=== PATIENT | female | born 1935 | race Caucasian/White ===

== ENCOUNTER → 2017-01-12 | Outpatient (CLI) | payer MEDICARE, OTHER ==
[~2017-01-12] MED LIST: ASPI-496 PO; ASPI-621 PO; ATOR40TA78 PO; ATOR80TA75 PO; CARV6.252 PO; CHOL2000 PO; CLOP75TA22 PO; DIAZ2TAB PO; DIAZ2TAB3 PO; ENAL5TAB PO; FERR325T20 PO; GABA100C8 PO; GABA300C10 PO; HYDR-2442 PO; HYDR10TA4 PO; LEVO100T5 PO; LEVO75TA PO; LEVO88TA4 PO; MULT-26 PO; MULT-658 PO; TICA90TA PO; TRAM50TA2 PO; UBID100C24 PO; VITA1CAP PO; VITA1TAB61 PO; co q 10 PO; vit d PO
== END | disposition home or self-care (01) ==
LOC: CVU 08:11
PROVIDERS: ATTEND Registered Nurse
DX: I65.23 Occlusion and stenosis of bilateral carotid arteries (principal); I25.2 Old myocardial infarction; I10 Essential (primary) hypertension; Z95.5 Presence of coronary angioplasty implant and graft
CPT/HCPCS: 93880

== ENCOUNTER 2017-07-24 11:26 | Day surgery (SDC) | payer MEDICARE, OTHER ==
[~2017-07-24] VITALS: Ht 147.3 cm; Wt 50.0 kg
[~2017-07-24 11:26] MED LIST changes: +ATOR-2 PO; -ATOR80TA75 PO; -CLOP75TA22 PO; +CLOP75TA52 PO; +FERR325T18 PO; -FERR325T20 PO; +GABA-826 PO; -GABA100C8 PO
[2017-07-24 12:15] VITALS: BP 167/80
[2017-07-24] MEDS ORDERED: VANCOMYCIN PMX 1GM/200ML 200 ML IVPB ONE (12:15)
[2017-07-24] MEDS ORDERED: SODIUM CHLORIDE 0.9% 1,000 ML IV SCH (12:20)
[2017-07-24] MEDS ORDERED: LIDOCAINE 2%, 20ML ONE ×2 (13:02)
[2017-07-24] MEDS ORDERED: FENTANYL PF 100 MCG/2ML ONE (13:16)
[2017-07-24] MEDS ORDERED: MIDAZOLAM 1 MG/ML, 5ML ONE (13:17)
[2017-07-24] MEDS ORDERED: FLUMAZENIL 0.1 MG/1 ML, 5ML ONE (13:17)
[2017-07-24] MEDS ORDERED: NALOXONE 1 MG/ML, 2ML ONE (13:17)
== END 2017-07-24 16:15 ==
LOC: OUT 11:26
PROVIDERS: ATTEND Internal Medicine Hematology & Oncology
DX: Z45.2 Encounter for adjustment and management of vascular access device (principal); C67.9 Malignant neoplasm of bladder, unspecified; Z88.1 Allergy status to other antibiotic agents; Z88.0 Allergy status to penicillin; I10 Essential (primary) hypertension; E78.5 Hyperlipidemia, unspecified; E03.9 Hypothyroidism, unspecified; Z98.890 Other specified postprocedural states; I25.10 Atherosclerotic heart disease of native coronary artery without angina pectoris; Z90.710 Acquired absence of both cervix and uterus; Z90.49 Acquired absence of other specified parts of digestive tract
CPT/HCPCS: 36561; 76937; 77001; 99156; 99157; C1788; C1894; J1642; J2250; J3010; J3370; J3490; J7030; J2310

== ENCOUNTER → 2017-08-28 | Outpatient (CLI) | payer MEDICARE, OTHER | END | disposition home or self-care (01) | LOC: RAD 10:47 | PROVIDERS: ATTEND Internal Medicine Cardiovascular Disease | DX: I65.23 Occlusion and stenosis of bilateral carotid arteries (principal); G45.9 Transient cerebral ischemic attack, unspecified | CPT/HCPCS: 93880 ==

== ENCOUNTER 2018-02-28 07:30 | Inpatient (IN) | payer MEDICARE, OTHER ==
[~2018-02-28] VITALS: Ht 147.3 cm; Wt 69.2 kg
[2018-03-13] MEDS ORDERED: GINK60TA PO (09:48)
[2018-03-13] MEDS ORDERED: IRON18TA PO (09:48)
[2018-03-13] MEDS ORDERED: TURM500C4 PO (09:48)
[2018-03-13] MEDS ORDERED: MAGN250T9 PO (09:48)
[2018-03-13] MEDS ORDERED: ATOR40TA78 PO (09:48)
[2018-03-13] MEDS ORDERED: LEVO88TA4 PO (09:48)
[2018-03-13] MEDS ORDERED: UBID100C24 PO (09:48)
[2018-03-20] MEDS ORDERED: LACTATED RINGERS 1,000 ML IV SCH ×2 (06:03→20:00)
[2018-03-20 06:04] VITALS: BP 148/63
[2018-03-20] MEDS ORDERED: THROMBIN 5,000 UNIT VIAL TP ONE (07:04)
[2018-03-20] MEDS ORDERED: BUPIVACAINE/PF-EPI 0.25% 1:200K ONE (07:04)
[2018-03-20] MEDS ORDERED: FENTANYL PF 250 MCG/5ML ONE ×2 (07:11→13:37)
[2018-03-20] MEDS ORDERED: MIDAZOLAM 1 MG/ML, 2ML ONE (07:11)
[2018-03-20] MEDS ORDERED: MEPERIDINE/PF 25MG/0.5ML IVPush PRN (08:30)
[2018-03-20] MEDS ORDERED: DIAZEPAM 5 MG/ML, 2ML IVPush PRN (08:30)
[2018-03-20] MEDS ORDERED: ACETAMINOPHEN 325 MG TABLET PO PRN (08:30)
[2018-03-20] MEDS ORDERED: ONDANSETRON 2MG/ML, 2ML IV PRN (08:30)
[2018-03-20] MEDS ORDERED: FENTANYL PF 100 MCG/2ML IV PRN (08:30)
[2018-03-20] MEDS ORDERED: HYDROmorphone 2 MG/ML, 1ML IV PRN (08:30)
[2018-03-20] MEDS ORDERED: OXYcodone 5 MG/5 ML ORAL.SOL UDC PO PRN (08:30)
[2018-03-20] MEDS ORDERED: CEFOTETAN 2 GM ONE (10:20)
[2018-03-20] MEDS ORDERED: HEPARIN 1,000 UNITS/ML, 10ML ONE (12:54)
[2018-03-20] MEDS ORDERED: HEPARIN 1,000 UNITS/ML, 10ML IV ONE (13:16)
[2018-03-20] MEDS ORDERED: ESTROGENS CONJUGATED VAG CRM 0.625MG/1G, 30GM ONE (13:26)
[2018-03-20] MEDS ORDERED: PROPOFOL 10 MG/ML, 20ML ONE (13:37)
[2018-03-20] MEDS ORDERED: ROCURONIUM 10MG/ML,5ML ONE (13:37)
[2018-03-20] MEDS ORDERED: ONDANSETRON 2MG/ML, 2ML ONE ×2 (13:37)
[2018-03-20] MEDS ORDERED: CEFOTETAN PMX 2GM/50ML 50 ML ONE (13:37)
[2018-03-20] MEDS ORDERED: DEXAMETHASONE 4 MG/ML, 1ML ONE (13:37)
[2018-03-20] MEDS ORDERED: LIDOCAINE-MPF 2% ,5ML ONE (13:38)
[2018-03-20] MEDS ORDERED: PHENYLEPHRINE 10 MG/ML ONE (14:31)
[2018-03-20] MEDS ORDERED: SUGAMMADEX 200 MG/2 ML IVPush ONE (16:08)
[2018-03-20] MEDS: LABETALOL 5MG/ML, 20ML IV PRN ×3 (17:00→17:20)
[2018-03-20] MEDS ORDERED: LABETALOL 5MG/ML, 20ML ONE (17:01)
[2018-03-20] MEDS ORDERED: MORPHINE SULFATE 4 MG/ML, 1ML ONE (17:14)
[2018-03-20] MEDS ORDERED: MEPERIDINE/PF 50 MG/ML ONE (17:18)
[2018-03-20] MEDS ORDERED: hydrALAzine 20 MG/ML, 1ML ONE (17:32)
[2018-03-20] MEDS ORDERED: hydrALAzine 20 MG/ML, 1ML IV PRN (18:00)
[2018-03-20 19:10] VITALS: BP 132/71
[2018-03-20] MEDS ORDERED: CEFOXITIN PMX 1GM/50ML 50 ML IVPB SCH (20:00)
[2018-03-20 20:16] VITALS: BP 165/74
[2018-03-20] MEDS: morphine SULFATE 10 MG/ML, 1ML IV PRN (21:00)
[2018-03-20] MEDS ORDERED: ENALAPRIL 5MG TABLET PO SCH (21:00)
[2018-03-20] MEDS: ONDANSETRON 2MG/ML, 2ML IV PRN (21:10)
[2018-03-20 21:50] VITALS: BP 147/77
[2018-03-20] MEDS: GABAPENTIN 300 MG CAPSULE PO SCH (21:54)
[2018-03-20] MEDS: CEFOXITIN 1,000 MG in SODIUM CHLORIDE 0.9% 50 ML IVPB SCH (21:54)
[2018-03-20] MEDS ORDERED: ENALAPRILAT 1.25 MG/ML, 2ML IV PRN (22:30)
[2018-03-20] MEDS ORDERED: LABETALOL 5MG/ML, 20ML IVPush PRN (22:30)
[2018-03-21] VITALS (7 sets, daily range): BP systolic 96–153; BP diastolic 46–71
[2018-03-21] MEDS: morphine SULFATE 10 MG/ML, 1ML IV PRN (00:21)
[2018-03-21] MEDS: ENALAPRILAT 1.25 MG/ML, 2ML IV SCH ×2 (00:22→07:03)
[2018-03-21] MEDS: HYDROcodone/APAP 5/325 TABLET PO PRN ×4 (01:48→17:18)
[2018-03-21] MEDS: ONDANSETRON 2MG/ML, 2ML IV PRN ×2 (06:14→13:33)
[2018-03-21] MEDS: LEVOTHYROXINE 88 MCG TABLET PO SCH (06:17)
[2018-03-21] MEDS: CEFOXITIN 1,000 MG in SODIUM CHLORIDE 0.9% 50 ML IVPB SCH ×3 (06:17→22:08)
[2018-03-21] MEDS: CARVEDILOL 6.25 MG TABLET PO SCH ×2 (06:17→17:13)
[2018-03-21 07:41] LABS: ANION GAP 11 mmol/L (5-15); CALCIUM 7.8 mg/dL (8.5-10.1); CHLORIDE 109 mmol/L (98-107); CREATININE 1.96 mg/dL (0.55-1.02)
[2018-03-21 07:53] LABS: BASOPHILS # (AUTO) 0.02 x10^3/uL (0-0.1); BASOPHILS % (AUTO) 0 % (0-1); EOSINOPHILS % (AUTO) 0 % (1-7); LYMPHOCYTES # (AUTO) 1.28 x10^3/uL (1-3.4); LYMPHOCYTES % (AUTO) 10 % (22-44); MD NO; MEAN CORPUSCULAR HGB CONC 33.1 g/dL (32.4-35.8); MEAN CORPUSCULAR VOLUME 96.8 fL (80-100); MONOCYTES % (AUTO) 6 % (2-9); NEUTROPHILS # (AUTO) 11.25 x10^3/uL (1.8-6.8); NEUTROPHILS % (AUTO) 84 % (42-75); PLATELET COUNT 176 x10^3/uL (130-400); RED BLOOD COUNT 2.94 x10^6/uL (3.82-5.3); RED CELL DISTRIBUTION WIDTH 14.1 % (9.6-15.2)
[2018-03-21] MEDS: GABAPENTIN 300 MG CAPSULE PO SCH ×3 (08:12→22:07)
[2018-03-21] MEDS: HEPARIN 5,000 UNITS/ML, 1ML SQ SCH ×3 (08:13→22:08)
[2018-03-21] MEDS ORDERED: ENALAPRILAT 1.25 MG/ML, 2ML IV PRN (09:30)
[2018-03-21] MEDS: LACTATED RINGERS 1,000 ML IV SCH (13:34)
[2018-03-21] MEDS ORDERED: SODIUM CHLORIDE 0.9%, 500ML IVBOLUS ONE (18:30)
[2018-03-22] MEDS: LACTATED RINGERS 1,000 ML IV SCH ×3 (01:39→22:12)
[2018-03-22 05:13] VITALS: BP 120/54
[2018-03-22] MEDS: CEFOXITIN 1,000 MG in SODIUM CHLORIDE 0.9% 50 ML IVPB SCH ×2 (06:19→14:04)
[2018-03-22] MEDS: CARVEDILOL 6.25 MG TABLET PO SCH ×2 (06:20→17:36)
[2018-03-22] MEDS: HEPARIN 5,000 UNITS/ML, 1ML SQ SCH ×3 (06:20→23:27)
[2018-03-22] MEDS: LEVOTHYROXINE 88 MCG TABLET PO SCH (06:20)
[2018-03-22] MEDS: HYDROcodone/APAP 5/325 TABLET PO PRN (06:37)
[2018-03-22 07:50] VITALS: BP 101/59
[2018-03-22] MEDS: GABAPENTIN 300 MG CAPSULE PO SCH ×3 (07:57→20:06)
[2018-03-22 09:11] LABS: BASOPHILS # (AUTO) 0.04 x10^3/uL (0-0.1); BASOPHILS % (AUTO) 0 % (0-1); EOSINOPHILS # (AUTO) 0.18 x10^3/uL (0-0.4); EOSINOPHILS % (AUTO) 1 % (1-7); LYMPHOCYTES # (AUTO) 1.83 x10^3/uL (1-3.4); LYMPHOCYTES % (AUTO) 13 % (22-44); MD NO; MEAN CORPUSCULAR HEMOGLOBIN 31.8 pg (27.0-34.8); MEAN CORPUSCULAR HGB CONC 32.7 g/dL (32.4-35.8); MEAN CORPUSCULAR VOLUME 97.1 fL (80-100); MEAN PLATELET VOLUME 8.1 fL (7.4-10.4); MONOCYTES # (AUTO) 1.11 x10^3/uL (0.2-0.8); MONOCYTES % (AUTO) 8 % (2-9); NEUTROPHILS # (AUTO) 11.46 x10^3/uL (1.8-6.8); NEUTROPHILS % (AUTO) 78 % (42-75); PLATELET COUNT 155 x10^3/uL (130-400); RED BLOOD COUNT 2.75 x10^6/uL (3.82-5.3); RED CELL DISTRIBUTION WIDTH 14.4 % (9.6-15.2)
[2018-03-22 09:15] LABS: ANION GAP 5 mmol/L (5-15); CALCIUM 7.2 mg/dL (8.5-10.1); CHLORIDE 108 mmol/L (98-107); CREATININE 1.96 mg/dL (0.55-1.02)
[2018-03-22 14:22] VITALS: BP 129/60
[2018-03-22] MEDS: ACETAMINOPHEN 500 MG TABLET PO PRN ×2 (16:12→23:28)
[2018-03-22 19:04] VITALS: BP 115/49
[2018-03-23 01:46] VITALS: BP 94/48
[2018-03-23 05:13] LABS: MEAN CORPUSCULAR HEMOGLOBIN 31.1 pg (27.0-34.8); MEAN CORPUSCULAR HGB CONC 32.1 g/dL (32.4-35.8); MEAN CORPUSCULAR VOLUME 96.9 fL (80-100); MEAN PLATELET VOLUME 8.2 fL (7.4-10.4); PLATELET COUNT 136 x10^3/uL (130-400); RED BLOOD COUNT 2.51 x10^6/uL (3.82-5.3); RED CELL DISTRIBUTION WIDTH 14.2 % (9.6-15.2)
[2018-03-23 05:22] LABS: ANION GAP 9 mmol/L (5-15); CALCIUM 7.3 mg/dL (8.5-10.1); CHLORIDE 109 mmol/L (98-107); CREATININE 1.91 mg/dL (0.55-1.02)
[2018-03-23 05:56] LABS: BASOPHILS # (AUTO) 0.02 x10^3/uL (0-0.1); BASOPHILS % (AUTO) 0 % (0-1); EOSINOPHILS # (AUTO) 0.31 x10^3/uL (0-0.4); EOSINOPHILS % (AUTO) 3 % (1-7); LYMPHOCYTES # (AUTO) 1.62 x10^3/uL (1-3.4); LYMPHOCYTES % (AUTO) 13 % (22-44); MD SCAN; MONOCYTES # (AUTO) 1.08 x10^3/uL (0.2-0.8); MONOCYTES % (AUTO) 9 % (2-9); NEUTROPHILS # (AUTO) 9.51 x10^3/uL (1.8-6.8); NEUTROPHILS % (AUTO) 76 % (42-75)
[2018-03-23 07:17] VITALS: BP 107/49
[2018-03-23] MEDS: ACETAMINOPHEN 500 MG TABLET PO PRN (07:36)
[2018-03-23] MEDS: HEPARIN 5,000 UNITS/ML, 1ML SQ SCH ×3 (07:37→22:09)
[2018-03-23] MEDS: LEVOTHYROXINE 88 MCG TABLET PO SCH (07:37)
[2018-03-23] MEDS: CARVEDILOL 6.25 MG TABLET PO SCH ×3 (07:37→18:14)
[2018-03-23] MEDS: LACTATED RINGERS 1,000 ML IV SCH ×2 (07:42→17:48)
[2018-03-23] MEDS: GABAPENTIN 300 MG CAPSULE PO SCH ×3 (09:20→20:57)
[2018-03-23 10:51] LABS: MEAN CORPUSCULAR HGB CONC 33.8 g/dL (32.4-35.8); MEAN CORPUSCULAR VOLUME 97.9 fL (80-100); MEAN PLATELET VOLUME 8.2 fL (7.4-10.4); PLATELET COUNT 134 x10^3/uL (130-400); RED BLOOD COUNT 2.56 x10^6/uL (3.82-5.3); RED CELL DISTRIBUTION WIDTH 14.2 % (9.6-15.2)
[2018-03-23 10:55] LABS: ANION GAP 9 mmol/L (5-15); CALCIUM 7.5 mg/dL (8.5-10.1); CHLORIDE 109 mmol/L (98-107); CREATININE 1.81 mg/dL (0.55-1.02)
[2018-03-23] MEDS: METOCLOPRAMIDE 5 MG/ML, 2ML IVPush SCH ×2 (11:01→18:15)
[2018-03-23 11:14] LABS: MD YES
[2018-03-23 11:16] LABS: BAND#(MANUAL) 0.91 x10^3/uL; BANDS%(MANUAL) 7 % (0-7); EOS#(MANUAL) 0.52 x10^3/uL (0.0-0.4); EOS% (MANUAL) 4 % (1-7); LYMPHS% (MANUAL) 10 % (22-44); METAMYELOCYTES# (MANUAL) 0.13 x10^3/uL (0-0); METAMYELOCYTES% (MANUAL) 1 % (0-1); MONOS#(MANUAL) 0.65 x10^3/uL (0.3-2.7); MONOS% (MANUAL) 5 % (2-9); SEG#(MANUAL) 9.49 x10^3/uL (1.8-6.8); SEGS% (MANUAL) 73 % (42-75)
[2018-03-23 11:18] LABS: <PLATELET ESTIMATE> ADEQUATE; <RBC MORPHOLOGY> NORMAL
[2018-03-23 11:19] LABS: <PLT MORPHOLOGY> NORMAL PLT MORPH
[2018-03-23 14:42] VITALS: BP 124/47
[2018-03-23 17:46] VITALS: BP 143/72
[2018-03-23 18:07] VITALS: BP 151/68
[2018-03-23] MEDS: SODIUM CHLORIDE 0.9% 1,000 ML IV SCH (19:18)
[2018-03-23] MEDS ORDERED: ACETAMINOPHEN 650 MG SUPP ONE (19:33)
[2018-03-23 19:45] LABS: MICROSCOPIC INDICATED
[2018-03-23 19:46] LABS: CULTURE INDICATED? YES
[2018-03-23] MEDS ORDERED: ACETAMINOPHEN 650 MG SUPP PR PRN (20:00)
[2018-03-23 20:09] VITALS: BP 151/70
[2018-03-23] MEDS ORDERED: NITR100C56 PO (23:44)
[2018-03-23] MEDS ORDERED: HYDR-3240 PO (23:45)
[2018-03-23] MEDS ORDERED: DOCU-131 PO (23:46)
[2018-03-24] VITALS (7 sets, daily range): BP systolic 96–156; BP diastolic 43–82
[2018-03-24] MEDS: LACTATED RINGERS 1,000 ML IV SCH ×3 (02:23→18:07)
[2018-03-24] MEDS: METOCLOPRAMIDE 5 MG/ML, 2ML IVPush SCH ×3 (02:26→18:07)
[2018-03-24] MEDS: HYDROcodone/APAP 5/325 TABLET PO PRN (04:22)
[2018-03-24] MEDS: SODIUM CHLORIDE 0.9% 1,000 ML IV SCH ×2 (05:15→14:25)
[2018-03-24 05:36] LABS: MEAN CORPUSCULAR HEMOGLOBIN 32.6 pg (27.0-34.8); MEAN CORPUSCULAR HGB CONC 33.6 g/dL (32.4-35.8); MEAN CORPUSCULAR VOLUME 97.2 fL (80-100); MEAN PLATELET VOLUME 8.2 fL (7.4-10.4); PLATELET COUNT 160 x10^3/uL (130-400); RED CELL DISTRIBUTION WIDTH 14.1 % (9.6-15.2)
[2018-03-24 05:47] LABS: ANION GAP 9 mmol/L (5-15); CALCIUM 7.3 mg/dL (8.5-10.1); CHLORIDE 111 mmol/L (98-107)
[2018-03-24 05:50] LABS: CREATININE 1.15 mg/dL (0.55-1.02)
[2018-03-24] MEDS: LEVOTHYROXINE 88 MCG TABLET PO SCH (06:06)
[2018-03-24] MEDS: HEPARIN 5,000 UNITS/ML, 1ML SQ SCH ×3 (06:06→21:44)
[2018-03-24] MEDS: CARVEDILOL 6.25 MG TABLET PO SCH ×2 (06:06→18:07)
[2018-03-24 06:19] LABS: MD YES
[2018-03-24 06:20] LABS: BAND#(MANUAL) 0.35 x10^3/uL; BANDS%(MANUAL) 3 % (0-7); BASOS#(MANUAL) 0.12 x10^3/uL (0-0.1); BASOS% (MANUAL) 1 % (0-1); EOS#(MANUAL) 0.12 x10^3/uL (0.0-0.4); EOS% (MANUAL) 1 % (1-7); LYMPH#(MANUAL) 0.23 x10^3/uL (1-3.4); LYMPHS% (MANUAL) 2 % (22-44); MONOS#(MANUAL) 1.04 x10^3/uL (0.3-2.7); MONOS% (MANUAL) 9 % (2-9); SEG#(MANUAL) 9.74 x10^3/uL (1.8-6.8); SEGS% (MANUAL) 84 % (42-75)
[2018-03-24 06:22] LABS: <PLATELET ESTIMATE> ADEQUATE; <PLT MORPHOLOGY> NORMAL PLT MORPH; <RBC MORPHOLOGY> NORMAL
[2018-03-24] MEDS: GABAPENTIN 300 MG CAPSULE PO SCH ×3 (08:50→21:44)
[2018-03-24] MEDS: ACETAMINOPHEN 500 MG TABLET PO PRN ×2 (08:50→16:02)
[2018-03-25] MEDS: SODIUM CHLORIDE 0.9% 1,000 ML IV SCH ×3 (00:40→21:25)
[2018-03-25 02:00] VITALS: BP 157/67
[2018-03-25] MEDS: ACETAMINOPHEN 500 MG TABLET PO PRN (02:32)
[2018-03-25] MEDS: METOCLOPRAMIDE 5 MG/ML, 2ML IVPush SCH ×3 (02:39→17:49)
[2018-03-25] MEDS: LEVOTHYROXINE 88 MCG TABLET PO SCH (05:12)
[2018-03-25] MEDS: HEPARIN 5,000 UNITS/ML, 1ML SQ SCH ×3 (05:12→21:17)
[2018-03-25] MEDS: CARVEDILOL 6.25 MG TABLET PO SCH ×2 (05:13→17:47)
[2018-03-25] MEDS: LACTATED RINGERS 1,000 ML IV SCH ×2 (05:54→20:00)
[2018-03-25 06:24] LABS: ANION GAP 6 mmol/L (5-15); CALCIUM 6.6 mg/dL (8.5-10.1); CHLORIDE 114 mmol/L (98-107); MEAN CORPUSCULAR HEMOGLOBIN 32.4 pg (27.0-34.8); MEAN CORPUSCULAR HGB CONC 33.4 g/dL (32.4-35.8); MEAN CORPUSCULAR VOLUME 97.1 fL (80-100); MEAN PLATELET VOLUME 8.2 fL (7.4-10.4); PLATELET COUNT 142 x10^3/uL (130-400); RED BLOOD COUNT 2.38 x10^6/uL (3.82-5.3)
[2018-03-25 07:09] VITALS: BP 133/63
[2018-03-25 07:11] LABS: MD YES
[2018-03-25 07:12] LABS: BAND#(MANUAL) 0.16 x10^3/uL; BANDS%(MANUAL) 2 % (0-7); BASOS#(MANUAL) 0.08 x10^3/uL (0-0.1); BASOS% (MANUAL) 1 % (0-1); LYMPH#(MANUAL) 0.66 x10^3/uL (1-3.4); LYMPHS% (MANUAL) 8 % (22-44); MONOS#(MANUAL) 0.16 x10^3/uL (0.3-2.7); MONOS% (MANUAL) 2 % (2-9); MYELOCYTES# (MANUAL) 0.08 x10^3/uL (0-0); MYELOCYTES% (MANUAL) 1 % (0-0); SEG#(MANUAL) 7.05 x10^3/uL (1.8-6.8); SEGS% (MANUAL) 86 % (42-75)
[2018-03-25 07:13] LABS: <PLATELET ESTIMATE> ADEQUATE; <PLT MORPHOLOGY> NORMAL PLT MORPH; <RBC MORPHOLOGY> NORMAL
[2018-03-25 07:15] LABS: TOXIC GRAN 1+
[2018-03-25] MEDS: GABAPENTIN 300 MG CAPSULE PO SCH ×3 (11:40→21:17)
[2018-03-25] MEDS: HYDROcodone/APAP 5/325 TABLET PO PRN (14:41)
[2018-03-25 17:49] VITALS: BP 152/72
[2018-03-25 20:15] VITALS: BP 141/63
[2018-03-26 01:22] VITALS: BP 159/66
[2018-03-26] MEDS: METOCLOPRAMIDE 5 MG/ML, 2ML IVPush SCH ×3 (03:14→17:08)
[2018-03-26] MEDS: HYDROcodone/APAP 5/325 TABLET PO PRN ×4 (03:46→22:41)
[2018-03-26 04:22] LABS: ALANINE AMINOTRANSFERASE 90 U/L (12-78); ALBUMIN 1.3 g/dL (3.4-5.0); ANION GAP 6 mmol/L (5-15); CALCIUM 6.8 mg/dL (8.5-10.1); CHLORIDE 115 mmol/L (98-107); CREATININE 0.76 mg/dL (0.55-1.02)
[2018-03-26 04:23] LABS: BASOPHILS # (AUTO) 0.01 x10^3/uL (0-0.1); BASOPHILS % (AUTO) 0 % (0-1); EOSINOPHILS # (AUTO) 0.39 x10^3/uL (0-0.4); EOSINOPHILS % (AUTO) 4 % (1-7); LYMPHOCYTES % (AUTO) 16 % (22-44); MD NO; MEAN CORPUSCULAR HEMOGLOBIN 31.6 pg (27.0-34.8); MEAN CORPUSCULAR HGB CONC 33.4 g/dL (32.4-35.8); MEAN CORPUSCULAR VOLUME 94.7 fL (80-100); MEAN PLATELET VOLUME 8.1 fL (7.4-10.4); MONOCYTES # (AUTO) 1.21 x10^3/uL (0.2-0.8); MONOCYTES % (AUTO) 13 % (2-9); NEUTROPHILS # (AUTO) 6.55 x10^3/uL (1.8-6.8); NEUTROPHILS % (AUTO) 68 % (42-75); PLATELET COUNT 162 x10^3/uL (130-400); RED CELL DISTRIBUTION WIDTH 14.2 % (9.6-15.2)
[2018-03-26 04:25] LABS: ALKALINE PHOSPHATASE 180 U/L (45-117); BILIRUBIN,TOTAL 0.5 mg/dL (0.2-1.0); TOTAL PROTEIN 4.6 g/dL (6.4-8.2)
[2018-03-26] MEDS: LACTATED RINGERS 1,000 ML IV SCH ×2 (05:06→14:28)
[2018-03-26] MEDS: CARVEDILOL 6.25 MG TABLET PO SCH ×2 (05:51→17:08)
[2018-03-26] MEDS: LEVOTHYROXINE 88 MCG TABLET PO SCH (05:51)
[2018-03-26] MEDS: HEPARIN 5,000 UNITS/ML, 1ML SQ SCH ×3 (05:52→22:35)
[2018-03-26 07:16] VITALS: BP 127/62
[2018-03-26] MEDS: GABAPENTIN 300 MG CAPSULE PO SCH ×3 (08:06→22:34)
[2018-03-26] MEDS: SODIUM CHLORIDE 0.9% 1,000 ML IV SCH ×2 (08:07→14:42)
[2018-03-26] MEDS: FLUCONAZOLE 200 MG/100 ML 100 ML IV SCH (10:26)
[2018-03-26 12:04] VITALS: BP 155/70
[2018-03-26 20:00] VITALS: BP 120/56
[2018-03-27 02:33] VITALS: BP 130/66
[2018-03-27] MEDS: METOCLOPRAMIDE 5 MG/ML, 2ML IVPush SCH ×2 (02:40→10:17)
[2018-03-27] MEDS: SODIUM CHLORIDE 0.9% 1,000 ML IV SCH ×2 (02:40→12:27)
[2018-03-27 04:47] LABS: BASOPHILS # (AUTO) 0.02 x10^3/uL (0-0.1); BASOPHILS % (AUTO) 0 % (0-1); EOSINOPHILS # (AUTO) 0.45 x10^3/uL (0-0.4); EOSINOPHILS % (AUTO) 5 % (1-7); LYMPHOCYTES # (AUTO) 1.14 x10^3/uL (1-3.4); LYMPHOCYTES % (AUTO) 12 % (22-44); MD NO; MEAN CORPUSCULAR HEMOGLOBIN 31.8 pg (27.0-34.8); MEAN CORPUSCULAR HGB CONC 32.6 g/dL (32.4-35.8); MEAN CORPUSCULAR VOLUME 97.5 fL (80-100); MEAN PLATELET VOLUME 8.3 fL (7.4-10.4); MONOCYTES # (AUTO) 1.15 x10^3/uL (0.2-0.8); MONOCYTES % (AUTO) 12 % (2-9); NEUTROPHILS # (AUTO) 7.18 x10^3/uL (1.8-6.8); NEUTROPHILS % (AUTO) 72 % (42-75); PLATELET COUNT 152 x10^3/uL (130-400); RED BLOOD COUNT 2.36 x10^6/uL (3.82-5.3); RED CELL DISTRIBUTION WIDTH 14.8 % (9.6-15.2)
[2018-03-27 04:58] LABS: ANION GAP 8 mmol/L (5-15); CALCIUM 6.7 mg/dL (8.5-10.1); CHLORIDE 116 mmol/L (98-107)
[2018-03-27] MEDS: HEPARIN 5,000 UNITS/ML, 1ML SQ SCH ×2 (06:16→14:00)
[2018-03-27] MEDS: LEVOTHYROXINE 88 MCG TABLET PO SCH (06:16)
[2018-03-27] MEDS: CARVEDILOL 6.25 MG TABLET PO SCH (06:17)
[2018-03-27 06:49] VITALS: BP 145/64
[2018-03-27] MEDS: FLUCONAZOLE 200 MG/100 ML 100 ML IV SCH (08:21)
[2018-03-27] MEDS: GABAPENTIN 300 MG CAPSULE PO SCH (08:21)
[2018-03-27 13:47] VITALS: BP 182/71
[2018-03-27] MEDS: HYDROcodone/APAP 5/325 TABLET PO PRN (13:54)
[2018-03-27] MEDS ORDERED: ENOX40SY4 SQ (14:12)
[2018-03-27] MEDS ORDERED: NITR100C56 PO (14:14)
[2018-03-27 14:35] VITALS: BP 151/69
== END 2018-03-27 14:55 | DRG 653 ==
LOC: ORIP 03-20 05:32 → EDSTATUS 03-20 07:30 → 5SO 03-20 18:39 → 4NOR 03-21 13:18
PROVIDERS: ADMIT Urology; ATTEND Internal Medicine
PROC: 0UT20ZZ Resection of Bilateral Ovaries, Open Approach (ICD-10-PCS; 2018-03-20)
PROC: 0T180ZC Bypass Bilateral Ureters to Ileocutaneous, Open Approach (ICD-10-PCS; 2018-03-20)
PROC: 8E0W0CZ Robotic Assisted Procedure of Trunk Region, Open Approach (ICD-10-PCS; 2018-03-20)
PROC: 07TC0ZZ Resection of Pelvis Lymphatic, Open Approach (ICD-10-PCS; 2018-03-20)
PROC: 0TTB0ZZ Resection of Bladder, Open Approach (ICD-10-PCS; principal; 2018-03-20 07:30)
PROC: 0T9B70Z Drainage of Bladder with Drainage Device, Via Natural or Artificial Opening (ICD-10-PCS; 2018-03-23)
DX: C67.9 Malignant neoplasm of bladder, unspecified (principal); J96.90 Respiratory failure, unspecified, unspecified whether with hypoxia or hypercapnia; N17.9 Acute kidney failure, unspecified; B37.49 Other urogenital candidiasis; E78.5 Hyperlipidemia, unspecified; E03.9 Hypothyroidism, unspecified; I10 Essential (primary) hypertension; D64.9 Anemia, unspecified; I25.10 Atherosclerotic heart disease of native coronary artery without angina pectoris; I25.2 Old myocardial infarction; I73.9 Peripheral vascular disease, unspecified; M54.5 Low back pain; K64.8 Other hemorrhoids; G89.29 Other chronic pain; Z90.710 Acquired absence of both cervix and uterus; Z90.49 Acquired absence of other specified parts of digestive tract; Z95.5 Presence of coronary angioplasty implant and graft; Z92.21 Personal history of antineoplastic chemotherapy; Z82.49 Family history of ischemic heart disease and other diseases of the circulatory system; Z88.0 Allergy status to penicillin; Z88.2 Allergy status to sulfonamides; Z79.82 Long term (current) use of aspirin; Z79.899 Other long term (current) drug therapy
CPT/HCPCS: 36415; 70450; 71045; 71250; 78582; 80048; 80053; 81001; 82570; 82962; 83605; 83735; 84100; 85014; 85018; 85025; 85379; 86850; 86900; 87040; 87086; 87106; 88305; 88309; 88331; C1729; J1100; J1644; J2175; J2250; J2405; J2704; J3010; J3490; A9540; A9558; C1769; C2617; C9898; J0360; J0694; J1450; J2270; J2370; J2765; J7030; J7040; J7120; S0074

== ENCOUNTER → 2018-03-13 | Outpatient (CLI) | payer MEDICARE, OTHER ==
[~2018-03-13] MED LIST changes: +GINK60TA PO; +IRON18TA PO; +MAGN250T9 PO; +TURM500C4 PO
[2018-03-13 09:21] LABS: BASOPHILS # (AUTO) 0.06 x10^3/uL (0-0.1); BASOPHILS % (AUTO) 1 % (0-1); EOSINOPHILS # (AUTO) 0.37 x10^3/uL (0-0.4); EOSINOPHILS % (AUTO) 5 % (1-7); LYMPHOCYTES # (AUTO) 1.94 x10^3/uL (1-3.4); LYMPHOCYTES % (AUTO) 28 % (22-44); MD NO; MEAN CORPUSCULAR HEMOGLOBIN 31.8 pg (27.0-34.8); MEAN CORPUSCULAR VOLUME 96.5 fL (80-100); MEAN PLATELET VOLUME 7.9 fL (7.4-10.4); MONOCYTES # (AUTO) 0.79 x10^3/uL (0.2-0.8); MONOCYTES % (AUTO) 11 % (2-9); NEUTROPHILS # (AUTO) 3.83 x10^3/uL (1.8-6.8); NEUTROPHILS % (AUTO) 55 % (42-75); PLATELET COUNT 197 x10^3/uL (130-400); RED BLOOD COUNT 3.58 x10^6/uL (3.82-5.3); RED CELL DISTRIBUTION WIDTH 14.4 % (9.6-15.2)
[2018-03-13 09:34] LABS: ALANINE AMINOTRANSFERASE 32 U/L (12-78); ALBUMIN 3.4 g/dL (3.4-5.0); ANION GAP 7 mmol/L (5-15); CALCIUM 9.6 mg/dL (8.5-10.1); CHLORIDE 109 mmol/L (98-107); CREATININE 0.98 mg/dL (0.55-1.02)
[2018-03-13 09:36] LABS: ALKALINE PHOSPHATASE 77 U/L (45-117); BILIRUBIN,TOTAL 0.4 mg/dL (0.2-1.0); TOTAL PROTEIN 7.4 g/dL (6.4-8.2)
[2018-03-13 09:38] LABS: MICROSCOPIC NOT IND
== END | disposition home or self-care (01) ==
LOC: STAR 08:14
PROVIDERS: ATTEND Urology
DX: Z01.818 Encounter for other preprocedural examination (principal); C67.9 Malignant neoplasm of bladder, unspecified; I10 Essential (primary) hypertension; E78.5 Hyperlipidemia, unspecified
CPT/HCPCS: 36415; 80053; 81003; 85025; 87086; 93005

== ENCOUNTER 2018-05-14 12:43 | Inpatient (IN) | payer MEDICARE, OTHER ==
[~2018-05-14] VITALS: Ht 149.9 cm; Wt 60.2 kg
[~2018-05-14 12:43] MED LIST changes: +DOCU-131 PO; +ENOX40SY4 SQ; +HYDR-3240 PO; +NITR100C56 PO
[2018-05-14] MEDS ORDERED: SODIUM CHLORIDE FLUSH 10ML SYR IVF ONE (13:30)
[2018-05-14 13:59] LABS: MEAN CORPUSCULAR HEMOGLOBIN 30.9 pg (27.0-34.8); MEAN CORPUSCULAR HGB CONC 32.9 g/dL (32.4-35.8); MEAN PLATELET VOLUME 8.1 fL (7.4-10.4); PLATELET COUNT 289 x10^3/uL (130-400); RED BLOOD COUNT 2.99 x10^6/uL (3.82-5.3)
[2018-05-14 14:02] LABS: ALANINE AMINOTRANSFERASE 15 U/L (12-78); ANION GAP 10 mmol/L (5-15); CHLORIDE 106 mmol/L (98-107); CREATININE 1.72 mg/dL (0.55-1.02)
[2018-05-14 14:06] LABS: ALKALINE PHOSPHATASE 110 U/L (45-117); BILIRUBIN,TOTAL 0.3 mg/dL (0.2-1.0); TOTAL PROTEIN 7.3 g/dL (6.4-8.2); TROPONIN I < 0.015 ng/mL (0.000-0.045)
[2018-05-14 14:19] LABS: MD YES
[2018-05-14 14:24] LABS: BAND#(MANUAL) 0.24 x10^3/uL; BANDS%(MANUAL) 1 % (0-7)
[2018-05-14 14:25] LABS: LYMPH#(MANUAL) 1.71 x10^3/uL (1-3.4); LYMPHS% (MANUAL) 7 % (22-44); MONOS#(MANUAL) 1.46 x10^3/uL (0.3-2.7); MONOS% (MANUAL) 6 % (2-9); SEG#(MANUAL) 20.98 x10^3/uL (1.8-6.8); SEGS% (MANUAL) 86 % (42-75)
[2018-05-14 14:29] LABS: TOXIC GRAN 1+
[2018-05-14 14:30] LABS: <PLATELET ESTIMATE> ADEQUATE; <PLT MORPHOLOGY> NORMAL PLT MORPH; ANISOCYTOSIS 1+; OVALOCYTES 1+
[2018-05-14] MEDS ORDERED: LORA10TA62 PO (15:58)
[2018-05-14] MEDS ORDERED: METR500T PO (15:58)
[2018-05-14] MEDS ORDERED: FURO-93 PO (15:58)
[2018-05-14] MEDS ORDERED: FLUC150T2 PO (15:58)
[2018-05-14] MEDS ORDERED: FENTANYL PF 100 MCG/2ML ONE (16:26)
[2018-05-14] MEDS ORDERED: FENTANYL PF 100 MCG/2ML IV ONE (16:30)
[2018-05-14 17:50] LABS: CULTURE INDICATED? YES; MICROSCOPIC INDICATED
[2018-05-14] MEDS ORDERED: MORPHINE SULFATE 4 MG/ML, 1ML IVPush ONE (19:00)
[2018-05-14] MEDS ORDERED: CEFTRIAXONE 1,000 MG in SODIUM CHLORIDE 0.9% 50 ML IVPB ONE (19:00)
[2018-05-14] MEDS ORDERED: MORPHINE SULFATE 4 MG/ML, 1ML ONE (19:18)
[2018-05-14 20:15] VITALS: BP 103/60
[2018-05-14 20:18] VITALS: BP 103/60
[2018-05-14] MEDS ORDERED: CEFTRIAXONE 1,000 MG IM SCH (21:30)
[2018-05-14] MEDS ORDERED: ACETAMINOPHEN 500 MG TABLET PO ONE (21:30)
[2018-05-14] MEDS ORDERED: SODIUM CHLORIDE 0.9% 1,000 ML IV SCH (21:30)
[2018-05-14] MEDS ORDERED: ONDANSETRON ODT 4 MG PO PRN (21:30)
[2018-05-14] MEDS: SODIUM CHLORIDE 0.9% 1,000 ML IV SCH (21:34)
[2018-05-14] MEDS: LORATADINE 10 MG TABLET PO SCH (22:30)
[2018-05-14] MEDS: CEFTRIAXONE 1,000 MG in SODIUM CHLORIDE 0.9% 50 ML IV SCH (22:31)
[2018-05-15 01:12] VITALS: BP 98/54
[2018-05-15 04:42] LABS: MEAN CORPUSCULAR HEMOGLOBIN 30.6 pg (27.0-34.8); MEAN CORPUSCULAR HGB CONC 32.1 g/dL (32.4-35.8); MEAN CORPUSCULAR VOLUME 95.3 fL (80-100); MEAN PLATELET VOLUME 7.9 fL (7.4-10.4); PLATELET COUNT 289 x10^3/uL (130-400); RED BLOOD COUNT 3.07 x10^6/uL (3.82-5.3); RED CELL DISTRIBUTION WIDTH 17.3 % (9.6-15.2)
[2018-05-15 04:53] LABS: ANION GAP 9 mmol/L (5-15); CALCIUM 8.2 mg/dL (8.5-10.1); CHLORIDE 110 mmol/L (98-107)
[2018-05-15 04:55] LABS: CREATININE 1.81 mg/dL (0.55-1.02)
[2018-05-15 05:13] LABS: BASOPHILS # (AUTO) 0.03 x10^3/uL (0-0.1); BASOPHILS % (AUTO) 0 % (0-1); EOSINOPHILS # (AUTO) 0.21 x10^3/uL (0-0.4); EOSINOPHILS % (AUTO) 1 % (1-7); LYMPHOCYTES # (AUTO) 3.01 x10^3/uL (1-3.4); LYMPHOCYTES % (AUTO) 14 % (22-44); MD SCAN; MONOCYTES # (AUTO) 1.47 x10^3/uL (0.2-0.8); MONOCYTES % (AUTO) 7 % (2-9); NEUTROPHILS # (AUTO) 16.37 x10^3/uL (1.8-6.8); NEUTROPHILS % (AUTO) 78 % (42-75)
[2018-05-15] MEDS: CARVEDILOL 6.25 MG TABLET PO SCH ×2 (06:43→18:34)
[2018-05-15] MEDS: SODIUM CHLORIDE 0.9% 1,000 ML IV SCH ×3 (06:43→22:29)
[2018-05-15 06:52] VITALS: BP 149/73
[2018-05-15] MEDS: LORATADINE 10 MG TABLET PO SCH (08:18)
[2018-05-15] MEDS: ACETAMINOPHEN 325 MG TABLET PO PRN ×2 (08:19→19:12)
[2018-05-15] MEDS: FERROUS SULFATE 325 MG TABLET PO SCH ×2 (08:19→20:27)
[2018-05-15] MEDS: MAGNESIUM OXIDE 400 MG TABLET PO SCH (08:20)
[2018-05-15] MEDS ORDERED: LEVOTHYROXINE 88 MCG TABLET PO SCH (09:00)
[2018-05-15] MEDS ORDERED: VANCOMYCIN PER PHARMACY MC PRN (12:00)
[2018-05-15] MEDS ORDERED: PHARMACOKINETIC CONSULTATION MC ONE (12:30)
[2018-05-15] MEDS ORDERED: PHARMACOKINETIC MONITORING MC PRN (12:30)
[2018-05-15 12:39] VITALS: BP 171/84
[2018-05-15] MEDS ORDERED: VANCOMYCIN PMX 1GM/200ML 200 ML IVPB ONE (13:00)
[2018-05-15] MEDS ORDERED: PHARMACY MAY ADJ FOR RENAL FX MC PRN (14:30)
[2018-05-15 19:10] VITALS: BP 131/72
[2018-05-15] MEDS: CEFTRIAXONE 1,000 MG in SODIUM CHLORIDE 0.9% 50 ML IV SCH (22:29)
[2018-05-16 01:14] VITALS: BP 136/85
[2018-05-16] MEDS: ACETAMINOPHEN 325 MG TABLET PO PRN ×4 (01:18→22:18)
[2018-05-16 05:24] LABS: ALBUMIN 1.4 g/dL (3.4-5.0); ANION GAP 12 mmol/L (5-15); CALCIUM 6.8 mg/dL (8.5-10.1); CHLORIDE 114 mmol/L (98-107)
[2018-05-16 05:30] LABS: ALANINE AMINOTRANSFERASE 13 U/L (12-78); ALKALINE PHOSPHATASE 128 U/L (45-117); BILIRUBIN,TOTAL 0.2 mg/dL (0.2-1.0); CREATININE 1.31 mg/dL (0.55-1.02); TOTAL PROTEIN 5.7 g/dL (6.4-8.2); VANCOMYCIN,RANDOM 12.7 mcg/mL
[2018-05-16 05:31] LABS: MEAN CORPUSCULAR HEMOGLOBIN 31.6 pg (27.0-34.8); MEAN CORPUSCULAR HGB CONC 33.8 g/dL (32.4-35.8); MEAN CORPUSCULAR VOLUME 93.5 fL (80-100); MEAN PLATELET VOLUME 7.9 fL (7.4-10.4); PLATELET COUNT 216 x10^3/uL (130-400); RED BLOOD COUNT 2.45 x10^6/uL (3.82-5.3); RED CELL DISTRIBUTION WIDTH 17.3 % (9.6-15.2)
[2018-05-16] MEDS: SODIUM CHLORIDE 0.9% 1,000 ML IV SCH ×2 (05:48→18:06)
[2018-05-16] MEDS: CARVEDILOL 6.25 MG TABLET PO SCH ×2 (05:48→18:05)
[2018-05-16 06:18] LABS: BASOPHILS # (AUTO) 0.03 x10^3/uL (0-0.1); BASOPHILS % (AUTO) 0 % (0-1); EOSINOPHILS # (AUTO) 0.02 x10^3/uL (0-0.4); EOSINOPHILS % (AUTO) 0 % (1-7); LYMPHOCYTES # (AUTO) 1.33 x10^3/uL (1-3.4); LYMPHOCYTES % (AUTO) 9 % (22-44); MD SCAN; MONOCYTES # (AUTO) 1.55 x10^3/uL (0.2-0.8); MONOCYTES % (AUTO) 10 % (2-9); NEUTROPHILS # (AUTO) 12.25 x10^3/uL (1.8-6.8); NEUTROPHILS % (AUTO) 81 % (42-75)
[2018-05-16 07:40] VITALS: BP 129/65
[2018-05-16] MEDS: DOCUSATE 100 MG CAPSULE PO PRN (09:10)
[2018-05-16] MEDS: MAGNESIUM OXIDE 400 MG TABLET PO SCH (09:10)
[2018-05-16] MEDS: FERROUS SULFATE 325 MG TABLET PO SCH ×2 (09:10→19:54)
[2018-05-16] MEDS: LEVOTHYROXINE 100 MCG TABLET PO SCH (09:10)
[2018-05-16] MEDS: LORATADINE 10 MG TABLET PO SCH (09:10)
[2018-05-16] MEDS: VANCOMYCIN PMX 1GM/200ML 200 ML IV SCH (10:59)
[2018-05-16 12:44] VITALS: BP 129/46
[2018-05-16 19:58] VITALS: BP 127/73
[2018-05-16] MEDS: CEFTRIAXONE 1,000 MG in SODIUM CHLORIDE 0.9% 50 ML IV SCH (22:15)
[2018-05-16] MEDS: CALCIUM CARBONATE 500 MG TAB.CHEW PO PRN (23:34)
[2018-05-17] VITALS (7 sets, daily range): BP systolic 140–153; BP diastolic 70–80
[2018-05-17] MEDS: ACETAMINOPHEN 325 MG TABLET PO PRN ×2 (03:27→09:52)
[2018-05-17] MEDS: CALCIUM CARBONATE 500 MG TAB.CHEW PO PRN ×2 (04:32→20:04)
[2018-05-17 04:58] LABS: MEAN CORPUSCULAR HEMOGLOBIN 30.3 pg (27.0-34.8); MEAN CORPUSCULAR HGB CONC 32.7 g/dL (32.4-35.8); MEAN CORPUSCULAR VOLUME 92.7 fL (80-100); MEAN PLATELET VOLUME 7.9 fL (7.4-10.4); PLATELET COUNT 260 x10^3/uL (130-400); RED BLOOD COUNT 2.89 x10^6/uL (3.82-5.3); RED CELL DISTRIBUTION WIDTH 17.4 % (9.6-15.2)
[2018-05-17 05:05] LABS: ANION GAP 11 mmol/L (5-15); CALCIUM 7.5 mg/dL (8.5-10.1); CHLORIDE 114 mmol/L (98-107); CREATININE 1.07 mg/dL (0.55-1.02)
[2018-05-17 05:12] LABS: BASOPHILS # (AUTO) 0.03 x10^3/uL (0-0.1); BASOPHILS % (AUTO) 0 % (0-1); EOSINOPHILS % (AUTO) 1 % (1-7); LYMPHOCYTES % (AUTO) 14 % (22-44); MD SCAN; MONOCYTES # (AUTO) 1.11 x10^3/uL (0.2-0.8); MONOCYTES % (AUTO) 7 % (2-9); NEUTROPHILS % (AUTO) 78 % (42-75)
[2018-05-17] MEDS: CARVEDILOL 6.25 MG TABLET PO SCH ×2 (06:18→17:59)
[2018-05-17] MEDS: SODIUM CHLORIDE 0.9% 1,000 ML IV SCH (06:20)
[2018-05-17] MEDS: OMEPRAZOLE 20 MG CAPSULE.DR PO SCH ×2 (09:52→20:04)
[2018-05-17] MEDS: LORATADINE 10 MG TABLET PO SCH (09:52)
[2018-05-17] MEDS: LEVOTHYROXINE 100 MCG TABLET PO SCH (09:52)
[2018-05-17] MEDS: FERROUS SULFATE 325 MG TABLET PO SCH ×2 (09:52→20:04)
[2018-05-17] MEDS: MAGNESIUM OXIDE 400 MG TABLET PO SCH (09:52)
[2018-05-17] MEDS ORDERED: LACTATED RINGERS 1,000 ML IV SCH ×2 (10:00→12:00)
[2018-05-17] MEDS: VANCOMYCIN PMX 1GM/200ML 200 ML IV SCH (11:01)
[2018-05-17] MEDS ORDERED: FUROSEMIDE 20 MG/2 ML IV ONE ×2 (12:30→14:00)
[2018-05-17] MEDS ORDERED: FUROSEMIDE 40 MG/4 ML IV ONE (18:00)
[2018-05-17 22:53] LABS: ANION GAP 13 mmol/L (5-15); CALCIUM 7.9 mg/dL (8.5-10.1); CHLORIDE 111 mmol/L (98-107); CREATININE 1.12 mg/dL (0.55-1.02)
[2018-05-17] MEDS: CEFTRIAXONE 1,000 MG in SODIUM CHLORIDE 0.9% 50 ML IV SCH (22:57)
[2018-05-18 02:16] VITALS: BP 134/68
[2018-05-18 04:48] LABS: BASOPHILS # (AUTO) 0.06 x10^3/uL (0-0.1); BASOPHILS % (AUTO) 1 % (0-1); EOSINOPHILS # (AUTO) 0.28 x10^3/uL (0-0.4); EOSINOPHILS % (AUTO) 2 % (1-7); LYMPHOCYTES # (AUTO) 2.66 x10^3/uL (1-3.4); LYMPHOCYTES % (AUTO) 22 % (22-44); MD NO; MEAN CORPUSCULAR HEMOGLOBIN 29.8 pg (27.0-34.8); MEAN CORPUSCULAR HGB CONC 32.4 g/dL (32.4-35.8); MEAN CORPUSCULAR VOLUME 91.9 fL (80-100); MEAN PLATELET VOLUME 7.8 fL (7.4-10.4); MONOCYTES # (AUTO) 0.82 x10^3/uL (0.2-0.8); MONOCYTES % (AUTO) 7 % (2-9); NEUTROPHILS % (AUTO) 69 % (42-75); PLATELET COUNT 291 x10^3/uL (130-400); RED BLOOD COUNT 3.03 x10^6/uL (3.82-5.3); RED CELL DISTRIBUTION WIDTH 17.5 % (9.6-15.2)
[2018-05-18 05:01] LABS: ANION GAP 12 mmol/L (5-15); CALCIUM 7.8 mg/dL (8.5-10.1); CHLORIDE 112 mmol/L (98-107)
[2018-05-18 05:02] LABS: CREATININE 1.08 mg/dL (0.55-1.02)
[2018-05-18] MEDS: CARVEDILOL 6.25 MG TABLET PO SCH ×2 (06:10→17:49)
[2018-05-18 06:32] VITALS: BP 140/73
[2018-05-18] MEDS ORDERED: NEUTRA PHOS K 250 MG TABLET PO ONE (08:00)
[2018-05-18] MEDS: LORATADINE 10 MG TABLET PO SCH (09:29)
[2018-05-18] MEDS: LEVOTHYROXINE 100 MCG TABLET PO SCH (09:30)
[2018-05-18] MEDS: MAGNESIUM OXIDE 400 MG TABLET PO SCH (09:30)
[2018-05-18] MEDS: FERROUS SULFATE 325 MG TABLET PO SCH ×2 (09:30→20:27)
[2018-05-18] MEDS: OMEPRAZOLE 20 MG CAPSULE.DR PO SCH ×2 (09:31→20:28)
[2018-05-18] MEDS: VANCOMYCIN PMX 1GM/200ML 200 ML IV SCH (10:35)
[2018-05-18] MEDS: FUROSEMIDE 20 MG/2 ML IV SCH (12:29)
[2018-05-18 13:37] VITALS: BP 139/68
[2018-05-18 19:18] VITALS: BP 142/70
[2018-05-18] MEDS: TEMAZEPAM 15 MG CAPSULE PO PRN (20:27)
[2018-05-18] MEDS: CEFTRIAXONE PMX 1GM/50ML 50 ML IV SCH (22:04)
[2018-05-19 02:40] VITALS: BP 136/69
[2018-05-19] MEDS: CARVEDILOL 6.25 MG TABLET PO SCH ×2 (05:48→18:29)
[2018-05-19 08:36] VITALS: BP 136/72
[2018-05-19] MEDS: FUROSEMIDE 20 MG/2 ML IV SCH (09:00)
[2018-05-19] MEDS: OMEPRAZOLE 20 MG CAPSULE.DR PO SCH ×2 (09:11→21:21)
[2018-05-19] MEDS: LORATADINE 10 MG TABLET PO SCH (09:12)
[2018-05-19] MEDS: FERROUS SULFATE 325 MG TABLET PO SCH ×2 (09:12→21:21)
[2018-05-19] MEDS: MAGNESIUM OXIDE 400 MG TABLET PO SCH (09:13)
[2018-05-19] MEDS ORDERED: VANCOMYCIN 1,400 MG in SODIUM CHLORIDE 0.9% 250 ML IV SCH ×2 (10:00→10:58)
[2018-05-19 12:47] LABS: MEAN CORPUSCULAR HEMOGLOBIN 30.6 pg (27.0-34.8); MEAN CORPUSCULAR HGB CONC 32.9 g/dL (32.4-35.8); MEAN CORPUSCULAR VOLUME 92.9 fL (80-100); MEAN PLATELET VOLUME 7.6 fL (7.4-10.4); PLATELET COUNT 313 x10^3/uL (130-400); RED BLOOD COUNT 2.97 x10^6/uL (3.82-5.3)
[2018-05-19 12:55] LABS: ANION GAP 13 mmol/L (5-15); CHLORIDE 107 mmol/L (98-107); CREATININE 1.12 mg/dL (0.55-1.02)
[2018-05-19 13:03] LABS: MD YES; RED CELL DISTRIBUTION WIDTH 17.8 % (9.6-15.2)
[2018-05-19 13:05] LABS: ANISOCYTOSIS 1+; BAND#(MANUAL) 0.42 x10^3/uL; BANDS%(MANUAL) 4 % (0-7); BASOS#(MANUAL) 0.11 x10^3/uL (0-0.1); BASOS% (MANUAL) 1 % (0-1); EOS#(MANUAL) 0.11 x10^3/uL (0.0-0.4); EOS% (MANUAL) 1 % (1-7); LYMPH#(MANUAL) 2.73 x10^3/uL (1-3.4); LYMPHS% (MANUAL) 26 % (22-44); MONOS#(MANUAL) 0.32 x10^3/uL (0.3-2.7); MONOS% (MANUAL) 3 % (2-9); SEG#(MANUAL) 6.83 x10^3/uL (1.8-6.8); SEGS% (MANUAL) 65 % (42-75)
[2018-05-19 13:06] LABS: OVALOCYTES 1+; POLYCHROMASIA 1+
[2018-05-19 13:07] LABS: <PLATELET ESTIMATE> ADEQUATE; <PLT MORPHOLOGY> NORMAL PLT MORPH
[2018-05-19] MEDS ORDERED: POTASSIUM PHOSPHATE 22 MEQ in SODIUM CHLORIDE 0.9% 500 ML IV ONE (13:30)
[2018-05-19 14:29] VITALS: BP 125/56
[2018-05-19] MEDS ORDERED: POTASSIUM CHLORIDE 20 MEQ TAB.ER.PRT PO ONE (16:30)
[2018-05-19 19:06] VITALS: BP 118/62
[2018-05-19] MEDS: TEMAZEPAM 15 MG CAPSULE PO PRN (21:25)
[2018-05-19] MEDS: CEFTRIAXONE PMX 1GM/50ML 50 ML IV SCH (23:28)
[2018-05-20 01:19] VITALS: BP 111/58
[2018-05-20 03:32] LABS: HCT (SEDRATE) 27.9 % (34.6-47.8)
[2018-05-20 03:33] LABS: BASOPHILS # (AUTO) 0.04 x10^3/uL (0-0.1); BASOPHILS % (AUTO) 0 % (0-1); EOSINOPHILS # (AUTO) 0.38 x10^3/uL (0-0.4); EOSINOPHILS % (AUTO) 4 % (1-7); LYMPHOCYTES # (AUTO) 2.79 x10^3/uL (1-3.4); LYMPHOCYTES % (AUTO) 26 % (22-44); MD NO; MEAN CORPUSCULAR HEMOGLOBIN 30.1 pg (27.0-34.8); MEAN CORPUSCULAR HGB CONC 32.7 g/dL (32.4-35.8); MEAN PLATELET VOLUME 7.4 fL (7.4-10.4); MONOCYTES # (AUTO) 0.75 x10^3/uL (0.2-0.8); MONOCYTES % (AUTO) 7 % (2-9); NEUTROPHILS # (AUTO) 6.61 x10^3/uL (1.8-6.8); NEUTROPHILS % (AUTO) 63 % (42-75); PLATELET COUNT 331 x10^3/uL (130-400); RED BLOOD COUNT 2.98 x10^6/uL (3.82-5.3); RED CELL DISTRIBUTION WIDTH 17.6 % (9.6-15.2)
[2018-05-20 03:41] LABS: INTERNATIONAL NORMALIZED RATIO 1.12 (0.93-1.1); PROTHROMBIN TIME 11.5 Seconds (9.6-11.5)
[2018-05-20 03:45] LABS: ALBUMIN 1.5 g/dL (3.4-5.0); ANION GAP 9 mmol/L (5-15); CALCIUM 7.6 mg/dL (8.5-10.1); CHLORIDE 110 mmol/L (98-107)
[2018-05-20 03:52] LABS: ALANINE AMINOTRANSFERASE 57 U/L (12-78); ALKALINE PHOSPHATASE 126 U/L (45-117); BILIRUBIN,TOTAL 0.2 mg/dL (0.2-1.0); CREATININE 0.89 mg/dL (0.55-1.02); TOTAL PROTEIN 6.3 g/dL (6.4-8.2)
[2018-05-20] MEDS: CARVEDILOL 6.25 MG TABLET PO SCH ×2 (05:44→17:10)
[2018-05-20] MEDS: LEVOTHYROXINE 100 MCG TABLET PO SCH ×2 (05:44→07:56)
[2018-05-20 06:47] VITALS: BP 153/69
[2018-05-20] MEDS: OMEPRAZOLE 20 MG CAPSULE.DR PO SCH ×2 (09:00→19:45)
[2018-05-20] MEDS ORDERED: POTASSIUM CHLORIDE 20 MEQ TAB.ER.PRT PO ONE (09:00)
[2018-05-20] MEDS: FERROUS SULFATE 325 MG TABLET PO SCH ×2 (09:00→19:45)
[2018-05-20] MEDS: MAGNESIUM OXIDE 400 MG TABLET PO SCH (09:00)
[2018-05-20] MEDS: LORATADINE 10 MG TABLET PO SCH (09:00)
[2018-05-20] MEDS ORDERED: VANCOMYCIN 1,100 MG in SODIUM CHLORIDE 0.9% 250 ML IV SCH (12:00)
[2018-05-20 12:02] VITALS: BP 146/76
[2018-05-20] MEDS ORDERED: LIDOCAINE-MPF 2%, 2ML ONE (13:04)
[2018-05-20] MEDS ORDERED: FENTANYL PF 100 MCG/2ML ONE (13:36)
[2018-05-20] MEDS ORDERED: MIDAZOLAM 1 MG/ML, 5ML ONE (13:36)
[2018-05-20] MEDS ORDERED: FLUMAZENIL 0.1 MG/1 ML, 5ML ONE (13:37)
[2018-05-20] MEDS ORDERED: NALOXONE 1 MG/ML, 2ML ONE (13:37)
[2018-05-20] MEDS: DAPTOMYCIN 350 MG in SODIUM CHLORIDE 0.9% 100 ML IV SCH ×2 (14:57→17:03)
[2018-05-20 19:08] VITALS: BP 106/34
[2018-05-20] MEDS: CEFTRIAXONE PMX 1GM/50ML 50 ML IV SCH (22:36)
[2018-05-21 01:22] VITALS: BP 110/69
[2018-05-21 05:40] VITALS: BP 134/68
[2018-05-21] MEDS: CARVEDILOL 6.25 MG TABLET PO SCH ×2 (05:42→18:24)
[2018-05-21] MEDS: LEVOTHYROXINE 100 MCG TABLET PO SCH (05:51)
[2018-05-21 06:56] VITALS: BP 125/66
[2018-05-21] MEDS: FERROUS SULFATE 325 MG TABLET PO SCH ×2 (08:26→19:53)
[2018-05-21] MEDS: LORATADINE 10 MG TABLET PO SCH (08:26)
[2018-05-21] MEDS: OMEPRAZOLE 20 MG CAPSULE.DR PO SCH ×2 (08:26→19:53)
[2018-05-21] MEDS: MAGNESIUM OXIDE 400 MG TABLET PO SCH (08:26)
[2018-05-21] MEDS: DOCUSATE 100 MG CAPSULE PO PRN (08:28)
[2018-05-21 12:25] VITALS: BP 120/70
[2018-05-21] MEDS ORDERED: ACET325T14 PO (13:02)
[2018-05-21] MEDS ORDERED: LEVO100T PO (13:02)
[2018-05-21] MEDS ORDERED: FERR-51 PO (13:02)
[2018-05-21] MEDS ORDERED: CEFT2FRO2 IVPB (13:02)
[2018-05-21] MEDS ORDERED: DAPT350V IV (13:02)
[2018-05-21] MEDS: DAPTOMYCIN 350 MG in SODIUM CHLORIDE 0.9% 100 ML IV SCH (17:14)
[2018-05-21 19:12] VITALS: BP 147/74
[2018-05-21] MEDS: TEMAZEPAM 15 MG CAPSULE PO PRN (19:53)
[2018-05-21] MEDS ORDERED: CEFTRIAXONE PMX 2GM/50ML 50 ML IV SCH (20:00)
[2018-05-22 01:32] VITALS: BP 139/72
[2018-05-22 05:12] VITALS: BP 150/78
[2018-05-22] MEDS: CARVEDILOL 6.25 MG TABLET PO SCH (05:13)
[2018-05-22 06:56] VITALS: BP 150/74
[2018-05-22] MEDS: LEVOTHYROXINE 100 MCG TABLET PO SCH (07:19)
[2018-05-22] MEDS: LORATADINE 10 MG TABLET PO SCH (07:35)
[2018-05-22] MEDS: MAGNESIUM OXIDE 400 MG TABLET PO SCH (07:35)
[2018-05-22] MEDS: OMEPRAZOLE 20 MG CAPSULE.DR PO SCH (07:35)
[2018-05-22] MEDS: FERROUS SULFATE 325 MG TABLET PO SCH (07:35)
[2018-05-22] MEDS: DOCUSATE 100 MG CAPSULE PO PRN (07:35)
[2018-05-22] MEDS: ACETAMINOPHEN 325 MG TABLET PO PRN (07:41)
== END 2018-05-22 09:10 | DRG 871 ==
LOC: ED 14:42 → EDIP 18:55 → 3NW 19:36
PROVIDERS: ADMIT Hospitalist; ATTEND Hospitalist
PROC: 0T9B70Z Drainage of Bladder with Drainage Device, Via Natural or Artificial Opening (ICD-10-PCS; 2018-05-14)
PROC: 0JPT3XZ Removal of Tunneled Vascular Access Device from Trunk Subcutaneous Tissue and Fascia, Percutaneous Approach (ICD-10-PCS; principal; 2018-05-20)
PROC: 02PYX3Z Removal of Infusion Device from Great Vessel, External Approach (ICD-10-PCS; 2018-05-20)
DX: A41.9 Sepsis, unspecified organism (principal); G93.41 Metabolic encephalopathy; N17.0 Acute kidney failure with tubular necrosis; I50.33 Acute on chronic diastolic (congestive) heart failure; N13.6 Pyonephrosis; E44.0 Moderate protein-calorie malnutrition; R42 Dizziness and giddiness; D64.81 Anemia due to antineoplastic chemotherapy; B96.89 Other specified bacterial agents as the cause of diseases classified elsewhere; R65.20 Severe sepsis without septic shock; T45.1X5A Adverse effect of antineoplastic and immunosuppressive drugs, initial encounter; C67.9 Malignant neoplasm of bladder, unspecified; B95.2 Enterococcus as the cause of diseases classified elsewhere; B96.1 Klebsiella pneumoniae [K. pneumoniae] as the cause of diseases classified elsewhere; E78.5 Hyperlipidemia, unspecified; E03.9 Hypothyroidism, unspecified; I73.9 Peripheral vascular disease, unspecified; I25.10 Atherosclerotic heart disease of native coronary artery without angina pectoris; I11.0 Hypertensive heart disease with heart failure; Z85.51 Personal history of malignant neoplasm of bladder; Z90.710 Acquired absence of both cervix and uterus; Z86.73 Personal history of transient ischemic attack (TIA), and cerebral infarction without residual deficits; Z90.6 Acquired absence of other parts of urinary tract; Z93.6 Other artificial openings of urinary tract status; Z88.0 Allergy status to penicillin; Z95.5 Presence of coronary angioplasty implant and graft; I25.2 Old myocardial infarction; Y92.89 Other specified places as the place of occurrence of the external cause; Z90.49 Acquired absence of other specified parts of digestive tract; Z88.2 Allergy status to sulfonamides; Z68.26 Body mass index [BMI] 26.0-26.9, adult
CPT/HCPCS: 36415; 36590; 36600; 70450; 71045; 74176; 76770; 77001; 80048; 80053; 80202; 81001; 82550; 82803; 83605; 83735; 83880; 84132; 84443; 84484; 85014; 85018; 85025; 85610; 85651; 86140; 87040; 87077; 87086; 87186; 93005; 93306; 96374; 99156; 99157; 99285; G0378; J0696; J0878; J1940; J2250; J3010; J3370; J3490; Q0162; J2310; J7030; J7040; J7050; J7120

== ENCOUNTER → 2018-11-14 | Outpatient (CLI) | payer MEDICARE, OTHER ==
[~2018-11-14] MED LIST changes: +ACET325T14 PO; -ASPI-621 PO; +ASPI81TA45 PO; +CEFT2FRO2 IVPB; +DAPT350V IV; +FERR-51 PO; +FLUC150T2 PO; +FURO-93 PO; +FUROSEMIDE 20 MG/2 ML ONE; +LEVO100T PO; +LORA10TA62 PO; +METR500T PO
== END | disposition home or self-care (01) ==
LOC: RAD 10:11
PROVIDERS: ATTEND Anesthesiology
DX: N13.30 Unspecified hydronephrosis (principal); C67.9 Malignant neoplasm of bladder, unspecified
CPT/HCPCS: 78708; A9562; J1940

== ENCOUNTER 2019-09-24 14:16 | Inpatient (IN) | payer MEDICARE, OTHER ==
[~2019-09-24] VITALS: Ht 149.9 cm; Wt 46.2 kg
[~2019-09-24 14:16] MED LIST changes: -FUROSEMIDE 20 MG/2 ML ONE; +HYDR-2995 PO; -HYDR10TA4 PO
[2019-09-24] MEDS ORDERED: SODIUM CHLORIDE 0.9% 1,000ML IVBOLUS ONE (15:00)
[2019-09-24 15:27] LABS: ALANINE AMINOTRANSFERASE 14 U/L (12-78); ANION GAP 9 mmol/L (5-15); CALCIUM 8.9 mg/dL (8.5-10.1); CHLORIDE 110 mmol/L (98-107); CREATININE 1.48 mg/dL (0.55-1.02)
[2019-09-24 15:29] LABS: ALKALINE PHOSPHATASE 52 U/L (45-117); BILIRUBIN,TOTAL 0.2 mg/dL (0.2-1.0); TOTAL PROTEIN 6.3 g/dL (6.4-8.2)
[2019-09-24 15:51] LABS: MD YES; MEAN CORPUSCULAR HEMOGLOBIN 29.4 pg (27.0-34.8); MEAN CORPUSCULAR HGB CONC 33.2 g/dL (32.4-35.8); MEAN CORPUSCULAR VOLUME 88.8 fL (80-100); MEAN PLATELET VOLUME 8.2 fL (7.4-10.4); PLATELET COUNT 206 x10^3/uL (130-400); RED BLOOD COUNT 2.47 x10^6/uL (3.82-5.3); RED CELL DISTRIBUTION WIDTH 16.1 % (9.6-15.2)
[2019-09-24] MEDS ORDERED: SODIUM CHLORIDE 0.9% 1,000 ML IV ONE (15:59)
[2019-09-24 16:01] LABS: TROPONIN I < 0.015 ng/mL (0.000-0.045)
--- NOTE | 2019-09-24 16:02 | NUR ---
MD AT BEDSIDE EXAMINING PT AND TALKING WITH PT ABOUT POC, ADMISSION AND BLOOD TRANSFUSION
[2019-09-24 16:03] LABS: ANISOCYTOSIS 1+; BAND#(MANUAL) 0.07 x10^3/uL; BANDS%(MANUAL) 1 % (0-7); BASOS#(MANUAL) 0.07 x10^3/uL (0-0.1); BASOS% (MANUAL) 1 % (0-1); EOS#(MANUAL) 0.14 x10^3/uL (0.0-0.4); EOS% (MANUAL) 2 % (1-7); LYMPH#(MANUAL) 2.52 x10^3/uL (1-3.4); LYMPHS% (MANUAL) 37 % (22-44); MONOS#(MANUAL) 0.41 x10^3/uL (0.3-2.7); MONOS% (MANUAL) 6 % (2-9); SEGS% (MANUAL) 53 % (42-75)
[2019-09-24 16:04] LABS: <PLATELET ESTIMATE> ADEQUATE; <PLT MORPHOLOGY> NORMAL PLT MORPH; OVALOCYTES 1+
[2019-09-24 16:21] LABS: INTERNATIONAL NORMALIZED RATIO 1.05 (0.93-1.1); PROTHROMBIN TIME 11.1 Seconds (9.6-11.5)
[2019-09-24] MEDS ORDERED: OMNIPAQUE 350 MG/ML, 100ML BOTTLE ONE (16:30)
--- NOTE | 2019-09-24 17:03 | NUR ---
CONSENT OBTAINED FOR BLOOD TRANSFUSION. HOSPITALIST AT BEDSIDE.
[2019-09-24] MEDS ORDERED: SODIUM CHLORIDE 0.9% 1,000 ML IV SCH (17:24)
[2019-09-24 17:27] VITALS: BP 126/97
--- NOTE | 2019-09-24 17:30 | NUR ---
GI EXAMINING PT
[2019-09-24 17:49] VITALS: BP 123/48
--- NOTE | 2019-09-24 18:08 | NUR ---
REPORT TO [facility]. TO BE TRANSPORTED TO FLOOR.
--- NOTE | 2019-09-24 18:10 | NUR ---
BLOOD CONTINUES TO INFUSE WITH NO SYMPTOMS OF REACTION. PT DOES STATE SHE FEELS A LITTLE RUMBLING IN HER STOMACH. STATES SHE WILL HIT THE CALL LIGHT IF SHE NEEDS TO GO TO THE BATHROOM.L
[2019-09-24 19:43] VITALS: BP 161/71
[2019-09-24 20:31] VITALS: BP 149/74
[2019-09-24 21:51] VITALS: BP 133/61
[2019-09-24 22:15] VITALS: BP 140/35
[2019-09-25] VITALS (9 sets, daily range): BP systolic 118–149; BP diastolic 61–75
[2019-09-25 03:38] LABS: BASOPHILS # (AUTO) 0.05 x10^3/uL (0-0.1); BASOPHILS % (AUTO) 1 % (0-1); EOSINOPHILS # (AUTO) 0.32 x10^3/uL (0-0.4); EOSINOPHILS % (AUTO) 4 % (1-7); LYMPHOCYTES # (AUTO) 2.43 x10^3/uL (1-3.4); LYMPHOCYTES % (AUTO) 32 % (22-44); MD NO; MEAN CORPUSCULAR HEMOGLOBIN 29.6 pg (27.0-34.8); MEAN CORPUSCULAR HGB CONC 32.9 g/dL (32.4-35.8); MEAN CORPUSCULAR VOLUME 89.9 fL (80-100); MEAN PLATELET VOLUME 8.2 fL (7.4-10.4); MONOCYTES # (AUTO) 0.81 x10^3/uL (0.2-0.8); MONOCYTES % (AUTO) 11 % (2-9); NEUTROPHILS # (AUTO) 4.03 x10^3/uL (1.8-6.8); NEUTROPHILS % (AUTO) 53 % (42-75); PLATELET COUNT 160 x10^3/uL (130-400); RED BLOOD COUNT 3.05 x10^6/uL (3.82-5.3); RED CELL DISTRIBUTION WIDTH 15.2 % (9.6-15.2)
[2019-09-25 03:43] LABS: ALANINE AMINOTRANSFERASE 14 U/L (12-78); ALBUMIN 2.6 g/dL (3.4-5.0); ANION GAP 7 mmol/L (5-15); CHLORIDE 115 mmol/L (98-107); CREATININE 1.33 mg/dL (0.55-1.02)
[2019-09-25 03:45] LABS: ALKALINE PHOSPHATASE 45 U/L (45-117); BILIRUBIN,TOTAL 0.7 mg/dL (0.2-1.0); TOTAL PROTEIN 5.4 g/dL (6.4-8.2)
[2019-09-25] MEDS ORDERED: SENN-129 PO (08:36)
[2019-09-25] MEDS ORDERED: IRON1TAB60 PO (08:36)
[2019-09-25] MEDS ORDERED: vit D3 (08:36)
[2019-09-25] MEDS ORDERED: SERT-237 PO (08:36)
[2019-09-25] MEDS ORDERED: UBID1CAP43 PO (08:36)
[2019-09-25] MEDS ORDERED: magnesium PO (08:36)
[2019-09-25] MEDS ORDERED: HYDR-3342 PO (08:36)
[2019-09-25] MEDS ORDERED: levothyroxine PO (08:36)
[2019-09-25] MEDS ORDERED: alprazolam PO (08:36)
[2019-09-25] MEDS ORDERED: ATOR20TA86 PO (08:36)
[2019-09-25] MEDS ORDERED: ACTI260C3 PO (08:36)
[2019-09-25 09:05] LABS: MICROSCOPIC NOT IND
[2019-09-25 09:07] LABS: CULTURE INDICATED? NO
[2019-09-25 11:03] LABS: % IRON SATURATION 79 % (20-55); IRON LEVEL 189 mcg/dL (50-170); TOTAL IRON BINDING CAPACITY 239 mcg/dL (250-450)
[2019-09-25] MEDS: SODIUM CHLORIDE 0.9% 1,000 ML IV SCH (13:57)
[2019-09-25] MEDS: LACTOBACILLUS CHEW TABLET PO SCH ×2 (15:27→21:00)
[2019-09-26] VITALS (7 sets, daily range): BP systolic 123–137; BP diastolic 62–75
[2019-09-26 05:30] LABS: BASOPHILS # (AUTO) 0.04 x10^3/uL (0-0.1); BASOPHILS % (AUTO) 1 % (0-1); EOSINOPHILS # (AUTO) 0.34 x10^3/uL (0-0.4); EOSINOPHILS % (AUTO) 5 % (1-7); LYMPHOCYTES # (AUTO) 2.17 x10^3/uL (1-3.4); LYMPHOCYTES % (AUTO) 32 % (22-44); MD NO; MEAN CORPUSCULAR HEMOGLOBIN 30.2 pg (27.0-34.8); MEAN CORPUSCULAR HGB CONC 34.1 g/dL (32.4-35.8); MEAN CORPUSCULAR VOLUME 88.5 fL (80-100); MEAN PLATELET VOLUME 8.2 fL (7.4-10.4); MONOCYTES # (AUTO) 0.72 x10^3/uL (0.2-0.8); MONOCYTES % (AUTO) 11 % (2-9); NEUTROPHILS # (AUTO) 3.52 x10^3/uL (1.8-6.8); NEUTROPHILS % (AUTO) 52 % (42-75); PLATELET COUNT 120 x10^3/uL (130-400); RED BLOOD COUNT 3.07 x10^6/uL (3.82-5.3); RED CELL DISTRIBUTION WIDTH 15.8 % (9.6-15.2)
[2019-09-26 05:34] LABS: % IRON SATURATION 94 % (20-55); ANION GAP 6 mmol/L (5-15); CALCIUM 7.1 mg/dL (8.5-10.1); CHLORIDE 122 mmol/L (98-107); CREATININE 1.14 mg/dL (0.55-1.02); IRON LEVEL 184 mcg/dL (50-170); TOTAL IRON BINDING CAPACITY 196 mcg/dL (250-450)
[2019-09-26] MEDS: SODIUM CHLORIDE 0.9% 1,000 ML IV SCH (09:26)
[2019-09-26] MEDS: LACTOBACILLUS CHEW TABLET PO SCH ×3 (09:26→20:25)
[2019-09-26] MEDS ORDERED: NALOXONE 1 MG/ML, 2ML ONE (12:26)
[2019-09-26] MEDS ORDERED: FENTANYL PF 100 MCG/2ML ONE (12:26)
[2019-09-26] MEDS ORDERED: FLUMAZENIL 0.1 MG/1 ML, 5ML ONE (12:26)
[2019-09-26] MEDS ORDERED: MIDAZOLAM 1 MG/ML, 5ML ONE (12:26)
[2019-09-26] MEDS ORDERED: LIDOCAINE 1%, 10ML ONE (12:38)
[2019-09-27] VITALS (12 sets, daily range): BP systolic 115–153; BP diastolic 53–75
[2019-09-27] MEDS: SODIUM CHLORIDE 0.9% 1,000 ML IV SCH (04:35)
[2019-09-27 06:09] LABS: MEAN CORPUSCULAR HEMOGLOBIN 29.6 pg (27.0-34.8); MEAN CORPUSCULAR HGB CONC 33.3 g/dL (32.4-35.8); MEAN CORPUSCULAR VOLUME 88.9 fL (80-100); MEAN PLATELET VOLUME 8.1 fL (7.4-10.4); PLATELET COUNT 117 x10^3/uL (130-400); RED BLOOD COUNT 2.03 x10^6/uL (3.82-5.3); RED CELL DISTRIBUTION WIDTH 15.5 % (9.6-15.2)
[2019-09-27 06:39] LABS: BASOPHILS # (AUTO) 0.04 x10^3/uL (0-0.1); BASOPHILS % (AUTO) 0 % (0-1); EOSINOPHILS # (AUTO) 0.18 x10^3/uL (0-0.4); EOSINOPHILS % (AUTO) 2 % (1-7); LYMPHOCYTES # (AUTO) 2.35 x10^3/uL (1-3.4); LYMPHOCYTES % (AUTO) 24 % (22-44); MD SCAN; MONOCYTES # (AUTO) 0.75 x10^3/uL (0.2-0.8); MONOCYTES % (AUTO) 8 % (2-9); NEUTROPHILS # (AUTO) 6.41 x10^3/uL (1.8-6.8); NEUTROPHILS % (AUTO) 66 % (42-75)
[2019-09-27] MEDS: LACTOBACILLUS CHEW TABLET PO SCH ×3 (08:13→19:57)
[2019-09-27] MEDS ORDERED: ACETAMINOPHEN 325 MG TABLET PO PRN (09:00)
[2019-09-27] MEDS ORDERED: GOLYTELY 4,000ML ORAL.SOL PO ONE (16:00)
[2019-09-28] MEDS: DIPHENHYDRAMINE 50 MG/ML, 1ML IVPush PRN ×2 (01:33→21:04)
[2019-09-28 02:34] VITALS: BP 140/80
[2019-09-28 07:22] LABS: ANION GAP 7 mmol/L (5-15); CALCIUM 7.4 mg/dL (8.5-10.1); CHLORIDE 119 mmol/L (98-107); CREATININE 1.01 mg/dL (0.55-1.02)
[2019-09-28] MEDS: SODIUM CHLORIDE 0.9% 1,000 ML IV SCH (07:23)
[2019-09-28] MEDS: LACTOBACILLUS CHEW TABLET PO SCH ×3 (07:23→20:32)
[2019-09-28 08:00] VITALS: BP 163/80
[2019-09-28] MEDS ORDERED: MIDAZOLAM 1 MG/ML, 5ML ONE (10:19)
[2019-09-28] MEDS ORDERED: hydrALAzine 20 MG/ML, 1ML ONE (10:19)
[2019-09-28] MEDS ORDERED: PROPOFOL 10 MG/ML, 20ML ONE (10:19)
[2019-09-28] MEDS ORDERED: FENTANYL PF 100 MCG/2ML IV PRN (11:00)
[2019-09-28] MEDS ORDERED: hydrALAzine 20 MG/ML, 1ML IV PRN (11:00)
[2019-09-28] MEDS ORDERED: ACETAMINOPHEN 325 MG TABLET PO PRN (11:00)
[2019-09-28] MEDS ORDERED: MEPERIDINE/PF 25MG/ML,1ML IVPush PRN (11:00)
[2019-09-28] MEDS ORDERED: ONDANSETRON 2MG/ML, 2ML IV PRN (11:00)
[2019-09-28] MEDS ORDERED: SIMETHICONE DROPS 40 MG/0.6 ML BOTTLE ONE (11:17)
[2019-09-28 13:19] VITALS: BP 134/62
[2019-09-28] MEDS ORDERED: SODIUM CHLORIDE NASAL SPRAY 45ML BOTTLE NAS PRN (16:00)
[2019-09-28 20:26] VITALS: BP_SYST 114; BP_SYST 121; BP_DIAS 53; BP_DIAS 55
[2019-09-29 01:11] VITALS: BP 169/75
[2019-09-29 06:27] VITALS: BP 162/66
[2019-09-29 08:03] LABS: ANION GAP 8 mmol/L (5-15); CALCIUM 7.5 mg/dL (8.5-10.1); CHLORIDE 116 mmol/L (98-107); CREATININE 1.09 mg/dL (0.55-1.02)
[2019-09-29] MEDS: SODIUM CHLORIDE 0.9% 1,000 ML IV SCH (09:00)
[2019-09-29] MEDS: LACTOBACILLUS CHEW TABLET PO SCH (09:43)
== END 2019-09-29 11:20 | disposition home or self-care (01) | DRG 356 ==
LOC: ED 16:37 → EDIP 16:40 → 4EST 18:40 → DCLOUNGE 09-29 11:15
PROVIDERS: ADMIT Internal Medicine; ATTEND Hospitalist
PROC: 30233N1 Transfusion of Nonautologous Red Blood Cells into Peripheral Vein, Percutaneous Approach (ICD-10-PCS; principal; 2019-09-24)
PROC: 04L53DZ Occlusion of Superior Mesenteric Artery with Intraluminal Device, Percutaneous Approach (ICD-10-PCS; 2019-09-26)
PROC: 0DJD8ZZ Inspection of Lower Intestinal Tract, Via Natural or Artificial Opening Endoscopic (ICD-10-PCS; 2019-09-28)
DX: K57.31 Diverticulosis of large intestine without perforation or abscess with bleeding (principal); N17.0 Acute kidney failure with tubular necrosis; D62 Acute posthemorrhagic anemia; N18.4 Chronic kidney disease, stage 4 (severe); N13.30 Unspecified hydronephrosis; K55.21 Angiodysplasia of colon with hemorrhage; E03.9 Hypothyroidism, unspecified; I25.5 Ischemic cardiomyopathy; I35.9 Nonrheumatic aortic valve disorder, unspecified; I73.9 Peripheral vascular disease, unspecified; E78.5 Hyperlipidemia, unspecified; E87.70 Fluid overload, unspecified; G47.30 Sleep apnea, unspecified; I12.9 Hypertensive chronic kidney disease with stage 1 through stage 4 chronic kidney disease, or unspecified chronic kidney disease; I25.10 Atherosclerotic heart disease of native coronary artery without angina pectoris; K59.09 Other constipation; K64.4 Residual hemorrhoidal skin tags; Z85.51 Personal history of malignant neoplasm of bladder; I25.2 Old myocardial infarction; Z86.73 Personal history of transient ischemic attack (TIA), and cerebral infarction without residual deficits; Z95.5 Presence of coronary angioplasty implant and graft; Z90.710 Acquired absence of both cervix and uterus; Z90.49 Acquired absence of other specified parts of digestive tract; Z88.0 Allergy status to penicillin; Z88.2 Allergy status to sulfonamides
CPT/HCPCS: 36415; 37244; 74174; 80048; 80053; 81003; 83540; 83550; 83605; 83690; 84484; 85014; 85018; 85025; 85610; 85730; 86850; 86900; 86923; 93005; 96360; 99291; C1894; G0378; J2250; J2704; J3010; Q9967; C1751; C1769; J0360; J1200; J2310; J7030; P9016

== ENCOUNTER → 2020-06-29 | Outpatient (CLI) | payer MEDICARE, OTHER ==
[~2020-06-29] MED LIST changes: +ACTI260C3 PO; +ATOR20TA86 PO; -ENAL5TAB PO; +ENAL5TAB10 PO; -HYDR-2442 PO; +HYDR-3342 PO; +HYDR-3565 PO; +IRON1TAB60 PO; +SENN-129 PO; +SERT-237 PO; +UBID1CAP43 PO; +alprazolam PO; +levothyroxine PO; +magnesium PO; +vit D3
== END | disposition home or self-care (01) ==
LOC: CVU 07:47
PROVIDERS: ATTEND Internal Medicine Cardiovascular Disease
DX: I65.23 Occlusion and stenosis of bilateral carotid arteries (principal); I10 Essential (primary) hypertension; I25.2 Old myocardial infarction; G45.9 Transient cerebral ischemic attack, unspecified
CPT/HCPCS: 93880

== ENCOUNTER 2020-08-16 11:44 | Emergency (ER) | payer MEDICARE, OTHER ==
[~2020-08-16] VITALS: Ht 152.4 cm; Wt 45.3 kg
[~2020-08-16 11:44] MED LIST changes: +ATOR20TA37 PO; +CEFD300C37 PO; +LISI-167 PO; +LORA-59 PO; -LORA10TA62 PO
[2020-08-16 13:26] LABS: BASOPHILS % (AUTO) 1 % (0-1); EOSINOPHILS % (AUTO) 5 % (1-7); LYMPHOCYTES % (AUTO) 20 % (22-44); MEAN CORPUSCULAR HEMOGLOBIN 31.3 pg (27.0-34.8); MEAN CORPUSCULAR HGB CONC 33.5 g/dL (32.4-35.8); MEAN PLATELET VOLUME 8.2 fL (7.4-10.4); MONOCYTES % (AUTO) 12 % (2-9); NEUTROPHILS % (AUTO) 63 % (42-75); PLATELET COUNT 191 x10^3/uL (130-400); RED BLOOD COUNT 3.42 x10^6/uL (3.82-5.3); RED CELL DISTRIBUTION WIDTH 15.1 % (9.6-15.2)
[2020-08-16 13:34] LABS: ALBUMIN 3.4 g/dL (3.4-5.0); ANION GAP 7 mmol/L (5-15); CHLORIDE 107 mmol/L (98-107)
[2020-08-16 13:38] LABS: ALANINE AMINOTRANSFERASE 23 U/L (12-78); ALKALINE PHOSPHATASE 59 U/L (45-117); BILIRUBIN,TOTAL 0.7 mg/dL (0.2-1.0); CREATININE 1.57 mg/dL (0.55-1.02); TOTAL PROTEIN 7.3 g/dL (6.4-8.2)
[2020-08-16] MEDS ORDERED: OXYcodone/APAP 5/325MG TABLET ONE (13:39)
[2020-08-16] MEDS ORDERED: ONDANSETRON ODT 4 MG ONE (13:39)
[2020-08-16 13:43] VITALS: BP 158/61
--- NOTE | 2020-08-16 13:43 | NUR ---
BREAK RN FOR PRIMARY RN CHERIE. RECEIVED REPORT AT THIS TIME. PT MEDICATED NOTED PER MD ORDER FOR 03/29 ABD/BACK PAIN. RESTING COMFORTABLY, WATCHING TV. DENIES NEED TO USE RESTROOM. VSS. CALL LIGHT IN REACH. FALL PRECUATIONS IN PLACE. A&OX4. AWAITING RECHECK BY ERP.
[2020-08-16 13:44] LABS: MD NO
[2020-08-16] MEDS ORDERED: ONDANSETRON ODT 4 MG PO ONE (14:00)
[2020-08-16] MEDS ORDERED: OXYcodone/APAP 5/325MG TABLET PO ONE (14:00)
--- NOTE | 2020-08-16 14:14 | NUR ---
BREAK RN. BEDSIDE REPORT AND CARE BACK TO PRIMARY RN CHERIE AT THIS TIME.
== END 2020-08-16 14:36 | disposition home or self-care (01) ==
LOC: ED 14:18
DX: S22.060A Wedge compression fracture of T7-T8 vertebra, initial encounter for closed fracture (principal); R94.31 Abnormal electrocardiogram [ECG] [EKG]; I10 Essential (primary) hypertension; I25.2 Old myocardial infarction; Z98.61 Coronary angioplasty status; Z85.51 Personal history of malignant neoplasm of bladder; W01.0XXA Fall on same level from slipping, tripping and stumbling without subsequent striking against object, initial encounter; Y93.89 Activity, other specified; Y92.009 Unspecified place in unspecified non-institutional (private) residence as the place of occurrence of the external cause; Y99.8 Other external cause status
CPT/HCPCS: 36415; 72072; 74022; 80053; 83690; 85025; 93005; 99285; Q0162

== ENCOUNTER 2020-11-15 08:00 | Outpatient (CLI) | payer MEDICARE, OTHER ==
[~2020-11-15] VITALS: Ht 152.4 cm; Wt 43.6 kg
[~2020-11-15 08:00] MED LIST changes: +HYDR-1067 PO; -HYDR-3240 PO
[2020-11-15] MEDS ORDERED: MAGNESIUM PO (09:28)
[2020-11-15] MEDS ORDERED: MULT-658 PO (09:28)
[2020-11-15] MEDS ORDERED: TRAM50TA2 PO (09:28)
[2020-11-15] MEDS ORDERED: TURMERIC CURCUMIN PO (09:28)
[2020-11-15] MEDS ORDERED: ATOR20TA37 PO (09:28)
[2020-11-15] MEDS ORDERED: [UNRECOGNIZED DRUG - OTHER] PO (09:28)
== END 2020-11-15 23:59 | disposition home or self-care (01) ==
LOC: STAR 08:00 → EDSTATUS 11-23 13:30
PROVIDERS: ATTEND Orthopaedic Surgery Orthopaedic Surgery of the Spine
DX: Z20.822 Contact with and (suspected) exposure to COVID-19 (principal); M80.08XA Age-related osteoporosis with current pathological fracture, vertebra(e), initial encounter for fracture; R93.5 Abnormal findings on diagnostic imaging of other abdominal regions, including retroperitoneum; K83.8 Other specified diseases of biliary tract
CPT/HCPCS: U0003

== ENCOUNTER → 2021-02-02 | Outpatient (CLI) | payer MEDICARE ==
[~2021-02-02] MED LIST changes: +ALPR0.5T7 PO; +AMLO-150 PO; +CIPR250T2 PO; -HYDR-1067 PO; +HYDR-2214 PO; +HYDR50TA99 PO; +MAGNESIUM PO; +TURMERIC CURCUMIN PO; +[UNRECOGNIZED DRUG - OTHER] PO
[2021-02-02 15:47] LABS: BASOPHILS % (AUTO) 1 % (0-1); EOSINOPHILS % (AUTO) 2 % (1-7); LYMPHOCYTES % (AUTO) 30 % (22-44); MEAN CORPUSCULAR HEMOGLOBIN 28.2 pg (27.0-34.8); MEAN CORPUSCULAR HGB CONC 32.1 g/dL (32.4-35.8); MEAN PLATELET VOLUME 8.4 fL (7.4-10.4); MONOCYTES % (AUTO) 13 % (2-9); NEUTROPHILS % (AUTO) 53 % (42-75); PLATELET COUNT 232 x10^3/uL (130-400); RED BLOOD COUNT 3.62 x10^6/uL (3.82-5.3); RED CELL DISTRIBUTION WIDTH 15.3 % (9.6-15.2)
[2021-02-02 15:48] LABS: HCT (SEDRATE) 31.5 % (34.6-47.8)
[2021-02-02 16:00] LABS: INTERNATIONAL NORMALIZED RATIO 1.11 (0.93-1.1); PROTHROMBIN TIME 11.9 Seconds (9.6-11.5)
[2021-02-02 16:01] LABS: ALBUMIN 3.8 g/dL (3.4-5.0); CHLORIDE 107 mmol/L (98-107)
[2021-02-02 16:04] LABS: MICROSCOPIC AUTO
[2021-02-02 16:19] LABS: ALANINE AMINOTRANSFERASE 26 U/L (12-78); ALKALINE PHOSPHATASE 65 U/L (45-117); ANION GAP 8 mmol/L (5-15); BILIRUBIN,TOTAL 0.3 mg/dL (0.2-1.0); CALCIUM 9.7 mg/dL (8.5-10.1); CREATININE 1.34 mg/dL (0.55-1.02); TOTAL PROTEIN 7.9 g/dL (6.4-8.2)
== END | disposition home or self-care (01) ==
LOC: STAR 14:12
PROVIDERS: ATTEND Orthopaedic Surgery Orthopaedic Surgery of the Spine
DX: Z01.818 Encounter for other preprocedural examination (principal); M48.55XA Collapsed vertebra, not elsewhere classified, thoracolumbar region, initial encounter for fracture; Z20.822 Contact with and (suspected) exposure to COVID-19
CPT/HCPCS: 36415; 71046; 80053; 80074; 81001; 85025; 85610; 85651; 85730; 87086; 87806; 93005; U0003; U0005; G0475

== ENCOUNTER 2021-02-08 08:41 | Day surgery (SDC) | payer MEDICARE ==
[2021-02-07 12:20] LABS: MICROSCOPIC NOT IND
[~2021-02-08] VITALS: Ht 152.4 cm; Wt 41.7 kg
[2021-02-08] MEDS ORDERED: FENTANYL PF 100 MCG/2ML ONE ×2 (09:03)
[2021-02-08 09:18] VITALS: BP 129/66
[2021-02-08] MEDS ORDERED: CHLORHEXIDINE 15 ML UDC ONE (09:29)
[2021-02-08] MEDS ORDERED: CHLORHEXIDINE 15 ML UDC PO ONE (09:30)
[2021-02-08] MEDS ORDERED: LACTATED RINGERS 1,000 ML IV SCH (10:00)
[2021-02-08] MEDS ORDERED: EPINEPHRINE 1 MG/ML, 1ML ONE (10:33)
[2021-02-08] MEDS ORDERED: BUPIVACAINE/PF 0.5% ONE (10:33)
[2021-02-08] MEDS ORDERED: LIDOCAINE/PF 1%, 30ML ONE (10:33)
[2021-02-08] MEDS ORDERED: OMNIPAQUE 180 MG/ML, 20ML VIAL ONE ×2 (10:34)
[2021-02-08] MEDS ORDERED: VASOPRESSIN 20 UNIT/ML, 1ML ONE (10:54)
[2021-02-08] MEDS ORDERED: DEXAMETHASONE 4 MG/ML, 1ML ONE (10:54)
[2021-02-08] MEDS ORDERED: PHENYLEPHRINE 10 MG/ML ONE (10:54)
[2021-02-08] MEDS ORDERED: SUCCINYLCHOLINE 20 MG/ML, 10ML ONE (10:54)
[2021-02-08] MEDS ORDERED: ONDANSETRON 2MG/ML, 2ML ONE (10:54)
[2021-02-08] MEDS ORDERED: PROPOFOL 10 MG/ML, 20ML ONE (10:54)
[2021-02-08] MEDS ORDERED: CEFAZOLIN 1,000 MG ONE (10:54)
[2021-02-08] MEDS ORDERED: OMNIPAQUE 180 MG/ML, 20ML VIAL IT ONE (11:37)
[2021-02-08] MEDS ORDERED: METOPROLOL 1 MG/ML, 5ML IV PRN (12:30)
[2021-02-08] MEDS ORDERED: HYDROmorphone 1 MG/ML, 1ML INJ IVPush PRN (12:30)
[2021-02-08] MEDS ORDERED: hydrALAzine 20 MG/ML, 1ML IV PRN (12:30)
[2021-02-08] MEDS ORDERED: LABETALOL 5MG/ML, 20ML IV PRN (12:30)
[2021-02-08] MEDS ORDERED: FENTANYL PF 100 MCG/2ML IV PRN (12:30)
[2021-02-08] MEDS ORDERED: OXYcodone 5 MG/5 ML ORAL.SOL UDC PO PRN (12:30)
[2021-02-08] MEDS ORDERED: ONDANSETRON 2MG/ML, 2ML IVPush PRN (12:30)
[2021-02-08] MEDS ORDERED: MEPERIDINE/PF 100 MG/ML ONE (18:14)
== END 2021-02-08 15:30 | disposition home or self-care (01) ==
LOC: OUT 08:41
PROVIDERS: ATTEND Orthopaedic Surgery Orthopaedic Surgery of the Spine
DX: M80.08XA Age-related osteoporosis with current pathological fracture, vertebra(e), initial encounter for fracture (principal); I10 Essential (primary) hypertension; I25.10 Atherosclerotic heart disease of native coronary artery without angina pectoris; E78.5 Hyperlipidemia, unspecified; E03.9 Hypothyroidism, unspecified; I25.2 Old myocardial infarction; D64.9 Anemia, unspecified; Z88.0 Allergy status to penicillin; Z88.2 Allergy status to sulfonamides; Z95.5 Presence of coronary angioplasty implant and graft; Z98.1 Arthrodesis status
CPT/HCPCS: 22513; 72072; 81003; 88304; 88311; 95938; 95941; C1713; J0171; J0330; J0690; J1100; J2175; J2370; J2405; J2704; J3010; J7120; Q9965

== ENCOUNTER 2021-03-30 13:34 | Emergency (ER) | payer MEDICARE ==
[~2021-03-30] VITALS: Ht 154.9 cm; Wt 42.9 kg
--- NOTE | 2021-03-30 14:06 | NUR ---
ERP WAS IN TO SEE PT. PT UNDERSTANDS POC.
[2021-03-30 14:25] LABS: MICROSCOPIC INDICATED
[2021-03-30 14:49] LABS: BASOPHILS % (AUTO) 1 % (0-1); EOSINOPHILS % (AUTO) 2 % (1-7); LYMPHOCYTES % (AUTO) 31 % (22-44); MEAN CORPUSCULAR HEMOGLOBIN 26.8 pg (27.0-34.8); MEAN CORPUSCULAR HGB CONC 32.2 g/dL (32.4-35.8); MEAN PLATELET VOLUME 7.5 fL (7.4-10.4); MONOCYTES % (AUTO) 15 % (2-9); NEUTROPHILS % (AUTO) 51 % (42-75); PLATELET COUNT 236 x10^3/uL (130-400); RED BLOOD COUNT 3.36 x10^6/uL (3.82-5.3); RED CELL DISTRIBUTION WIDTH 17.6 % (9.6-15.2)
[2021-03-30 15:01] LABS: ALANINE AMINOTRANSFERASE 23 U/L (12-78); ALBUMIN 3.2 g/dL (3.4-5.0); ANION GAP 4 mmol/L (5-15); CALCIUM 8.3 mg/dL (8.5-10.1); CHLORIDE 107 mmol/L (98-107); CREATININE 1.41 mg/dL (0.55-1.02)
[2021-03-30 15:04] LABS: ALKALINE PHOSPHATASE 64 U/L (45-117); BILIRUBIN,TOTAL 0.3 mg/dL (0.2-1.0); TOTAL PROTEIN 6.9 g/dL (6.4-8.2)
[2021-03-30] MEDS ORDERED: CEFTRIAXONE 1,000 MG IM ONE (15:30)
[2021-03-30] MEDS ORDERED: CEFTRIAXONE 250 MG ONE (15:49)
[2021-03-30] MEDS ORDERED: LIDOCAINE-MPF 1%, 5ML ONE (15:49)
[2021-03-30 16:07] VITALS: BP 139/63
--- NOTE | 2021-03-30 16:10 | NUR ---
ABX GIVEN PER ORDERS. PT STATES SHE FEELS OKAY TO GO HOME. D/C INSTRUCTIONS, MEDS & F/U APPT RV'WD WITH PT. RX GIVEN X1. INSTRUCTED TO F/U WITH UROLOGIST AND/OR PCP IF SYMPTOMS NOT RESOLVED IN A FEW DAYS. ASSISTED PT OUT OF ED VIA WC.
== END 2021-03-30 16:25 | disposition home or self-care (01) ==
LOC: ED 16:05
DX: N39.0 Urinary tract infection, site not specified (principal); R10.84 Generalized abdominal pain; R11.10 Vomiting, unspecified; R19.7 Diarrhea, unspecified; I10 Essential (primary) hypertension; I25.2 Old myocardial infarction; Z86.73 Personal history of transient ischemic attack (TIA), and cerebral infarction without residual deficits; Z98.61 Coronary angioplasty status; Z87.891 Personal history of nicotine dependence; Z86.39 Personal history of other endocrine, nutritional and metabolic disease
CPT/HCPCS: 36415; 74021; 80053; 81001; 83690; 85025; 87077; 87086; 96372; 99284; J0696; 87186